=== PATIENT | male | born 1975 | race Caucasian/White ===

== ENCOUNTER 2017-09-01 23:49 | Emergency (ER) | payer MEDICAID ==
--- NOTE | 2017-09-02 00:17 | EDM.PDOC ---
ED HPI GENERAL MEDICAL PROBLEM - General Chief Complaint: General Stated Complaint: sore throat Time Seen by Provider: 09/02/17 00:10 Source of Information: Reports: Patient, Family ( ), Old Records ([facility]. No paper hospital chart available.) History Limitations: Reports: No Limitations - History of Present Illness INITIAL COMMENTS - FREE TEXT/NARRATIVE: Patient was brought to the emergency room via private automobile by his for evaluation of progressive URI symptoms including sore throat, throat fullness, nasal drainage, and yellowish productive cough with symptoms starting on about 08/27. Patient has been exposed to many individuals with URI symptoms, however no known direct exposure to strep, influenza, mononucleosis, etc. Patient did get his influenza booster this season. He has also had some intermittent fever and chills, however has not measured his temperature. No recent use of antipyretic medication other than low-dose Tylenol PM earlier this evening. Patient did start using his inhaler earlier today. He has not missed any work to this point. The patient denies any chest pain/pressure, heart flutter, dizziness, orthostasis, orthopnea, diaphoresis, paresthesias, recent decreased exercise tolerance, or any other anginal-type symptoms. No recent history of abdominal pain, heartburn, nausea, diarrhea, melena, gross hematochezia, or any food intolerance, including fatty foods, etc.. He has also been using Cepacol lozenges and Chloraseptic spray Onset: Gradual Onset Date: 08/27/17 Duration: Constant, Getting Worse Location: Reports: Head (Throat pain is about). Denies: Face, Neck, Chest, Abdomen, Back, Upper Extremity, Left, Upper Extremity, Right, Radiates to Quality: Reports: Ache, Same as Previous Episode Severity: Moderate Improves with: Reports: None Worsens with: Reports: None Context: Reports: Other (As above) Associated Symptoms: Reports: Cough, cough w sputum, Fever/Chills. 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 2130 Oral/Mouth Pain Score (Numeric/FACES): 8 - Related Data Allergies Allergy/AdvReac Type Severity Reaction Status Date / Time No Known Allergies Allergy Verified 09/01/17 23:59 Home Meds: Home Meds Acetaminophen/Diphenhydramine [Tylenol Pm Ex-Strength Caplet] 1 each PO ASDIRECTED PRN 09/02/17 [History] Albuterol Sulfate [Proair Hfa] 8.5 gm IH ASDIRECTED PRN 09/02/17 [History] Benazepril [Lotensin] 10 mg PO DAILY 09/02/17 [History] Diclofenac Sodium [Voltaren] 50 mg PO ASDIRECTED PRN 09/02/17 [History] Montelukast [Singulair] 1 tab PO DAILY 09/02/17 [History] Pantoprazole [ProTONIX] 1 cap PO DAILY 09/02/17 [History] guaiFENesin/Dextromethorphan [Mucinex DM ER 1,200-60 MG] 1 tab PO BID #20 tbmp.12hr 09/02/17 [Rx] Past Medical History HEENT History: Reports: Impaired Vision, Other (See Below). Denies: Allergic Rhinitis, Cataract, Glaucoma, Hard of Hearing, Macular Degeneration, Retinal Detachment Other HEENT History: Patient wears glasses Cardiovascular History: Reports: High Cholesterol, Hypertension. Denies: Afib, Aneurysm, Arrhythmia, Blood Clots/VTE/DVT, CAD, Heart Murmur, [place], Syncope Respiratory History: Reports: Asthma. Denies: COPD, Intubation, Previous, PE, Pneumothorax, Sleep Apnea Gastrointestinal History: Reports: GERD, Pancreatitis, Other (See Below). Denies: Celiac Disease, Cholelithiasis, Chronic Constipation, Chronic Diarrhea, Gastritis, GI Bleed, Hepatitis, Inflammatory Bowel Disease, Irritable Bowel Syndrome, Jaundice, PUD Other Gastrointestinal History: Pancreatitis of unknown etiology in about 2012 Genitourinary History: Denies: Acute Renal Failure, BPH, Chronic Renal Insuffiency, Renal Calculus, STD, Urinary Incontinence, UTI, Recurrent Musculoskeletal History: Reports: Arthritis, Back Pain, Chronic, Neck Pain, Chronic, Osteoarthritis. Denies: Fracture, Gout, RA, SLE Neurological History: Reports: None. Denies: Cerebral Aneurysms, Concussion, CVA, Headaches, Chronic, Head Trauma, Migraines, MS, Neuropathy, Peripheral, Parkinson's, Seizure, TIA Psychiatric History: Denies: Abuse, Victim of, ADD, ADHD, Addiction, Anxiety, Depression, Psych Hospitalization(s), PTSD, Suicide Attempt, Suicidal Ideation Endocrine/Metabolic History: Reports: Obesity/BMI 30+. Denies: Diabetes, Type I , Diabetes, Type II, Hypothyroidism, IDDM Hematologic History: Reports: None. Denies: Anemia, Blood Transfusion(s), Iron Deficiency Immunologic History: Reports: None. Denies: AIDS, HIV, SLE Oncologic (Cancer) History: Reports: None. Denies: Basal Cell Carcinoma, Hodgkin's Lymphoma, Leukemia, Lymphoma, Malignant Melanoma, Non-Hodgkin's Lymphoma, Squamous Cell Carcinoma Dermatologic History: Reports: Other (See Below). Denies: Eczema, Psoriasis Other Dermatologic History: Acne vulgaris previously - Infectious Disease History Infectious Disease History: Denies: C-Difficile, Chicken Pox, Measles, Meningitis, Mononucleosis, MRSA, Mumps, Pertussis (Whooping Cough), Rheumatic Fever, Rubella, Scarlet Fever, Shingles, TB, VRE - Past Surgical History Head Surgeries/Procedures: Reports: None HEENT Surgical History: Reports: Oral Surgery, Other (See Below). Denies: Adenoidectomy, Eye Surgery, Laser Surgery, LASIK, Myringotomy w Tube(s), Naso- Sinus Surgery, Tonsillectomy Other HEENT Surgeries/Procedures: [place] teeth extraction 4 at about age 14 Cardiovascular Surgical History: Reports: None. Denies: Varicose Respiratory Surgical History: Reports: None. Denies: Thoracentesis GI Surgical History: Denies: Appendectomy, Cholecystectomy, Colonoscopy, EGD, Hernia, Abdominal, Hernia, Inguinal, Hernia Repair/Other Male Surgical History: Reports: Circumcision. Denies: TURP-Transurethral Resection of Prostate, Vasectomy Other Male Surgeries/Procedures: Circumcision as an Endocrine Surgical History: Reports: None. Denies: Thyroid Biopsy Neurological Surgical History: Reports: None. Denies: C-Spine, Discectomy, Intracranial, Laminectomy, Lumbar Spine, Sacral Spine, Spinal Fusion, Vertebroplasty Musculoskeletal Surgical History: Reports: None. Denies: Arthroscopic Procedure , Carpal Tunnel, Ganglion Cyst, Joint Replacement, ORIF, Shoulder Surgery Oncologic Surgical History: Reports: None Dermatological Surgical History: Reports: None - Past Imaging History Past Imaging History: Reports: CAT Scan (CT of the cervical spine in 2017), MRI (MRI of lumbar spine in about 2007) Social & Family History - Tobacco Use Smoking Status *Q: Current Every Day Smoker Tobacco Use Within Last Twelve Months: Cigarettes Years of Tobacco use: 31 Packs/Tins Daily: 0.3 (Maximum of 1 packs per day; patient started smoking at age 10) Used Tobacco, but Quit: No Smoking Cessation Information Provided To Patient: Yes Second Hand Smoke Exposure: No Second Hand Smoke Education Provided: No - Caffeine Use Caffeine Use: Reports: Coffee (2 cups per day), Energy Drinks (4 per day), Soda (3 sodas per week). 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 Denies: Weakness, Fatigue , Diaphoresis, Decreased Appetite, Weight Loss, Weight Gain HEENT: Reports: Rhinitis, Throat Pain, Throat Swelling. Denies: Dental Pain, Ear Discharge, Ear Pain, Eye Pain, Glasses, Vertigo, Vision Change Respiratory: Reports: Cough, Sputum. Denies: Shortness of Breath, Wheezing, Pleuritic Chest Pain Cardiovascular: Reports: No Symptoms. Denies: Chest Pain, Blood Pressure Problem, Dyspnea on Exertion, Edema, Lightheadedness, Orthopnea, Palpitations, Syncope Endocrine: Reports: No Symptoms. Denies: Fatigue GI/Abdominal: Reports: Difficulty Swallowing (Secondary to pharyngitis). Denies : Abdominal Pain, Anorexia, Black Stool, Bloody Stool, Constipation, Diarrhea, Decreased Appetite, Distension, Flatus, Hematochezia, Melena, Nausea, Stool Incontinence, Vomiting : Reports: No Symptoms. Denies: Discharge, Dysuria, Flank Pain, Frequency, Hematuria, Incontinence, Pain, Urgency, Urinary Retention Musculoskeletal: Reports: No Symptoms. Denies: Neck Pain, Shoulder Pain, Arm Pain, Back Pain, Leg Pain Skin: Reports: No Symptoms. Denies: Diaphoresis, Rash, Wound Neurological: Reports: No Symptoms. Denies: Confusion, Dizziness, Headache, Numbness, Paresthesia, Seizure, Tingling Psychiatric: Reports: No Symptoms. Denies: Agitation, Anxiety, Confusion, Depression, Hallucinations, Suicidal Ideation Hematologic/Lymphatic: Reports: No Symptoms Immunologic: Reports: No Symptoms ED EXAM, GENERAL - Physical Exam Exam: See Below Exam Limited By: No Limitations General Appearance: Alert, WD/WN, No Apparent Distress Eye Exam: Bilateral Eye: EOMI, Normal Inspection (No nystagmus), PERRL Ears: Normal External Exam, Normal Canal, Hearing Grossly Normal, Normal TMs Nose: Normal Mucosa, No Blood, Nasal Drainage, Clear Rhinorrhea (Mild bilateral) . No: Nasal Tenderness, Nasal Swelling Throat/Mouth: Normal Lips, Normal Teeth, Normal Gums, Normal Oropharynx (+2 erythema in the posterior pharynx with no pinpoint white exudates or peritonsillar abscess, uvular swelling, etc.), No Airway Compromise. No: Normal Voice (Moderate hoarseness), Dysphagia, Perioral Cyanosis Head: Atraumatic, Normocephalic. No: Facial Swelling, Facial Tenderness, Sinus Tenderness Neck: Normal Inspection, Supple, Non-Tender, Full Range of Motion. No: Lymphadenopathy (L), Lymphadenopathy (R), Thyromegaly Respiratory/Chest: No Respiratory Distress, Lungs Clear, Normal Breath Sounds, No Accessory Muscle Use, Chest Non-Tender. No: Pleural Rub, Retractions Cardiovascular: Normal Peripheral Pulses, Regular Rate, Rhythm, No Edema, No Gallop, No JVD, No Murmur, No Rub. No: Gallop/S3, Gallop/S4, Friction Rub Peripheral Pulses: 2+: Radial (L), Radial (R) GI/Abdominal: Normal Bowel Sounds, Soft, Non-Tender, No Organomegaly, No Distention, No Abnormal Bruit, No Mass, Other (obese). No: Guarding (Male) Exam: Deferred Rectal (Males) Exam: Deferred Back Exam: Normal Inspection, Full Range of Motion. No: CVA Tenderness (L), CVA Tenderness (R), Muscle Spasm Extremities: Normal Range of Motion, Non-Tender, No Pedal Edema, Normal Capillary Refill. No: Pedal Edema (Trace bilateral pedal/pretibial edema), Alfonzo's Sign Neurological: Alert, Oriented, CN II-XII Intact, Normal Cognition, Normal Gait, No Motor/Sensory Deficits Psychiatric: Normal Affect, Normal Mood Skin Exam: Warm, Dry, Intact, Normal Color, No Rash. No: Diaphoretic, Wound/ Incision Lymphatic: No Adenopathy Course - Vital Signs Last Recorded V/S: Last Vital Signs Temp 37.0 C 09/01/17 23:50 Pulse 95 09/01/17 23:50 Resp 20 09/01/17 23:50 BP 145/80 H 09/01/17 23:50 Pulse Ox 95 09/01/17 23:50 Vital Signs - 24 hr 09/01/17 23:50 Temperature [ 37.0 C Temporal] Pulse, 95 Peripheral [ Pulse Oximetry] Respiratory 20 Rate Blood Pressure 145/80 H [Left Upper Arm ] O2 Sat by Pulse 95 Oximetry - Orders/Labs/Meds Orders: Active Orders 24 hr Category Date Time Status CULTURE STREP A CONFIRMATION [] Stat Lab 09/02/17 00:20 Results STREP SCRN A RAPID W CULT CONF [] Stat Lab 09/02/17 00:17 Ordered Obtain Past Medical Record [OM.PC] Routine Oth 09/02/17 00:17 Active Labs: Microbiology 09/02/17 00:20 Influenza Type A Antigen Screen - Final Nasopharyngeal Swab - Nare, Right NEGATIVE INFLUENZA A VIRUS AG Influenza Type B Antigen Screen - Final NEGATIVE INFLUENZA B VIRUS AG 09/02/17 00:20 Group A Streptococcus Rapid Screen - Final Throat NEGATIVE STREP A SCREEN Meds: Medications Discontinued Medications Generic Name Dose Route Start Last Admin Trade Name Freq PRN Reason Stop Dose Admin Methylprednisolone Acetate 80 mg 09/02/17 00:22 09/02/17 00:25 Depo-Medrol IM 09/02/17 00:23 80 mg ONETIME ONE Administration - Radiology Interpretation Free Text/Narrative:: None Departure - Departure Time of Disposition: 01:00 Disposition: Home, Self-Care 01 Condition: Good Clinical Impression: Asthma, Hypertension, Osteoarthritis, Obesity (BMI 35.0-39.9 without comorbidity), Peptic reflux disease, Respiratory infection, upper, Tobacco abuse counseling - Discharge Information Prescriptions: guaiFENesin/Dextromethorphan [Mucinex DM ER 1,200-60 MG] 1 tab PO BID #20 tbmp.12hr Instructions: Sore Throat, Uyxs-ko-Enpi Referrals: Clarita Robertson PA [Primary Care Provider] - Forms: ED Department Discharge, ED Return to Work/School Form Additional Instructions: 1. Follow up with your regular provider in 10-14 days as needed, if symptoms persist. 2. Tylenol 650 mg by mouth every 4 hours and/or OTC ibuprofen 2-3 tabs by mouth every 6 hours with food as directed./needed. 3. Listerine gargles four times per day, after meals and at bedtime, with additional Chloroseptic lozenges or spray as needed for 10 days and/or until symptoms resolve. 4. Hygiene precautions as discussed 5. Weight loss in moderation 6. Stop all tobacco use NATA as directed/per provided information and consider contacting [employer]uit [facility], etc.. 7. Work excuse- See Form - Problem List & Annotations (1) Respiratory infection, upper SNOMED Code(s): 59795328 Code(s): J06.9 - ACUTE UPPER RESPIRATORY INFECTION, UNSPECIFIED Status: Acute Priority: High Onset Date: ~08/27/17 Annotation/Comment:: IM Depo- Medrol given for throat inflammation and as asthma prophylaxis as below. No indication for antibiotic therapy at this time with likely viral pharyngitis, viral bronchitis and mild URI symptoms. Symptomatic relief as per discharge instructions. Work excuse provided Qualifiers: URI type: acute pharyngitis (2) Asthma SNOMED Code(s): 154581379 Code(s): J45.909 - UNSPECIFIED ASTHMA, UNCOMPLICATED Status: Chronic Priority: Medium Annotation/Comment:: No significant asthma exacerbation or current wheezes, etc. Note probable viral bronchitis. Compliance with inhaler encouraged. Qualifiers: Asthma severity: mild Asthma persistence: intermittent Asthma complication type: uncomplicated Qualified Code(s): J45.20 - Mild intermittent asthma, uncomplicated (3) Hypertension SNOMED Code(s): 71469695 Code(s): I10 - ESSENTIAL (PRIMARY) HYPERTENSION Status: Chronic Priority : Medium Annotation/Comment:: Stable by history. Currently treated Qualifiers: Hypertension type: essential hypertension Qualified Code(s): I10 - Essential (primary) hypertension (4) Obesity (BMI 35.0-39.9 without comorbidity) SNOMED Code(s): 229323667 Code(s): E66.9 - OBESITY, UNSPECIFIED Status: Chronic Priority: Medium Annotation/Comment:: Weight loss in moderation advised (5) Osteoarthritis SNOMED Code(s): 289900886 Code(s): M19.90 - UNSPECIFIED OSTEOARTHRITIS, UNSPECIFIED SITE Status: Chronic Priority: Medium Annotation/Comment:: Stable by history Qualifiers: Osteoarthritis location: multiple joints Osteoarthritis type: primary Qualified Code(s): M15.0 - Primary generalized (osteo)arthritis (6) Peptic reflux disease SNOMED Code(s): 64737158 Code(s): K21.9 - GASTRO-ESOPHAGEAL REFLUX DISEASE WITHOUT ESOPHAGITIS Status: Chronic Priority: Medium Annotation/Comment:: Stable under current medical therapy (7) Tobacco abuse counseling SNOMED Code(s): 129301699, 961202876 Code(s): Z71.6 - TOBACCO ABUSE COUNSELING Status: Chronic Priority: Medium Annotation/Comment:: Tobacco cessation strongly encouraged with information provided at discharge - Problem List Review Problem List Initiated/Reviewed/Updated: Yes - My Orders Last 24 Hours: My Active Orders 09/02/17 00:17 STREP SCRN A RAPID W CULT CONF [RM] Stat Obtain Past Medical Record [OM.PC] Routine 09/02/17 00:20 CULTURE STREP A CONFIRMATION [RM] Stat - Assessment/Plan Last 24 Hours: My Active Orders 09/02/17 00:17 STREP SCRN A RAPID W CULT CONF [RM] Stat Obtain Past Medical Record [OM.PC] Routine 09/02/17 00:20 CULTURE STREP A CONFIRMATION [RM] Stat Assessment:: As above Plan: As above. Extensive precautions were given to the patient and his , who are in agreement with the treatment plan. See Patient Instructions for further treatment and plan.
[2017-09-02] MEDS ORDERED: methylPREDNISolone Acetate 80 MG/ML SDV IM ONE (00:22)
== END 2017-09-02 00:49 | disposition home or self-care (01) ==
LOC: LL.ED 23:49
DX: J06.9 Acute upper respiratory infection, unspecified (principal); J45.909 Unspecified asthma, uncomplicated; I10 Essential (primary) hypertension; M19.90 Unspecified osteoarthritis, unspecified site; E66.9 Obesity, unspecified; K21.9 Gastro-esophageal reflux disease without esophagitis; F17.210 Nicotine dependence, cigarettes, uncomplicated; E78.00 Pure hypercholesterolemia, unspecified; Z71.6 Tobacco abuse counseling; Z79.899 Other long term (current) drug therapy; Z68.39 Body mass index [BMI] 39.0-39.9, adult
CPT/HCPCS: 87081; 87430; 87804; 96372; 99283; J1040

== ENCOUNTER 2017-10-29 09:30 | Emergency (ER) | payer MEDICAID, OTHER ==
--- NOTE | 2017-10-29 10:46 | EDM.PDOC ---
ED HPI GENERAL MEDICAL PROBLEM - General Chief Complaint: General Stated Complaint: Work Related Injury Time Seen by Provider: 10/29/17 10:15 Source of Information: Reports: Patient History Limitations: Reports: No Limitations - History of Present Illness INITIAL COMMENTS - FREE TEXT/NARRATIVE: Patient presents with acute low back pain that started last evening when he was working at [employer]. Patient was moving a cart full of water when he felt sudden mid low back pain. Complains of radiation down right leg when he is standing at times. Does have history of previous low back pain episodes in past but denies chronic daily pain. No bowel or bladder dysfunction. No numbness/ tingling down legs. Denies other complaints. Patient has history of obesity, asthma, high blood pressure and GERD. He did tell his employer last night that his back hurt. This morning after waking up patient noted that overall pain was worse and that is when he came to the ER. 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 Lower Back Pain Score (Numeric/FACES): 8 - Related Data Allergies Allergy/AdvReac Type Severity Reaction Status Date / Time No Known Allergies Allergy Verified 09/01/17 23:59 Home Meds: Home Meds Albuterol Sulfate [Proair Hfa] 8.5 gm IH ASDIRECTED PRN 09/02/17 [History] Benazepril [Lotensin] 10 mg PO DAILY 09/02/17 [History] Montelukast [Singulair] 1 tab PO DAILY 09/02/17 [History] Pantoprazole [ProTONIX] 1 cap PO DAILY 09/02/17 [History] Cyclobenzaprine [Flexeril] 10 mg PO TID PRN #15 tab 10/29/17 [Rx] Gabapentin [Neurontin] 300 mg PO DAILY 10/29/17 [History] Non-Formulary Medication [NF Drug] 1 applic TOP DAILY 10/29/17 [History] Prednisone [IMW: predniSONE] 40 mg PO WITHBREAKFAST #10 tab 10/29/17 [Rx] traMADol [Ultram] 50 mg PO Q6H PRN #15 tab 10/29/17 [Rx] Past Medical History HEENT History: Reports: Impaired Vision, Other (See Below). Denies: Allergic Rhinitis, Cataract, Glaucoma, Hard of Hearing, Macular Degeneration, Retinal Detachment Other HEENT History: Patient wears glasses Cardiovascular History: Reports: High Cholesterol, Hypertension. Denies: Afib, Aneurysm, Arrhythmia, Blood Clots/VTE/DVT, CAD, Heart Murmur, CT, Syncope Respiratory History: Reports: Asthma. Denies: COPD, Intubation, Previous, PE, Pneumothorax, Sleep Apnea Gastrointestinal History: Reports: GERD, Pancreatitis, Other (See Below). Denies: Celiac Disease, Cholelithiasis, Chronic Constipation, Chronic Diarrhea, Gastritis, GI Bleed, Hepatitis, Inflammatory Bowel Disease, Irritable Bowel Syndrome, Jaundice, PUD Other Gastrointestinal History: Pancreatitis of unknown etiology in about 2012 Musculoskeletal History: Reports: Arthritis, Back Pain, Chronic, Neck Pain, Chronic, Osteoarthritis. Denies: Fracture, Gout, RA, SLE Neurological History: Reports: None. Denies: Cerebral Aneurysms, Concussion, CVA, Headaches, Chronic, Head Trauma, Migraines, MS, Neuropathy, Peripheral, Parkinson's, Seizure, TIA Endocrine/Metabolic History: Reports: Obesity/BMI 30+. Denies: Diabetes, Type I , Diabetes, Type II, Hypothyroidism, IDDM Hematologic History: Reports: None. Denies: Anemia, Blood Transfusion(s), Iron Deficiency Immunologic History: Reports: None. Denies: AIDS, HIV, SLE Oncologic (Cancer) History: Reports: None. Denies: Basal Cell Carcinoma, Hodgkin's Lymphoma, Leukemia, Lymphoma, Malignant Melanoma, Non-Hodgkin's Lymphoma, Squamous Cell Carcinoma Dermatologic History: Reports: Other (See Below). Denies: Eczema, Psoriasis Other Dermatologic History: Acne vulgaris previously - Past Surgical History Head Surgeries/Procedures: Reports: None HEENT Surgical History: Reports: Oral Surgery, Other (See Below). Denies: Adenoidectomy, Eye Surgery, Laser Surgery, LASIK, Myringotomy w Tube(s), Naso- Sinus Surgery, Tonsillectomy Other HEENT Surgeries/Procedures: [place] teeth extraction 4 at about age 14 Cardiovascular Surgical History: Reports: None. Denies: Varicose Respiratory Surgical History: Reports: None. Denies: Thoracentesis Male Surgical History: Reports: Circumcision. Denies: TURP-Transurethral Resection of Prostate, Vasectomy Other Male Surgeries/Procedures: Circumcision as an infant Endocrine Surgical History: Reports: None. Denies: Thyroid Biopsy Neurological Surgical History: Reports: None. Denies: C-Spine, Discectomy, Intracranial, Laminectomy, Lumbar Spine, Sacral Spine, Spinal Fusion, Vertebroplasty Musculoskeletal Surgical History: Reports: None. Denies: Arthroscopic Procedure , Carpal Tunnel, Ganglion Cyst, Joint Replacement, ORIF, Shoulder Surgery Oncologic Surgical History: Reports: None Dermatological Surgical History: Reports: None - Past Imaging History Past Imaging History: Reports: CAT Scan (CT of the cervical spine in 2017), MRI (MRI of lumbar spine in about 2007) Social & Family History - Family History Family Medical History: Noncontributory (for complaint) - Tobacco Use Smoking Status *Q: Current Every Day Smoker Years of Tobacco use: 31 Packs/Tins Daily: 0.3 Used Tobacco, but Quit: No Second Hand Smoke Exposure: No - Caffeine Use Caffeine Use: Reports: Coffee, Energy Drinks, Soda Caffeine Use Comment: Rarely - Alcohol Use Days Per Week of Alcohol Use: 0 (No previous DWIs, problems with alcohol abuse, etc.) Number of Drinks Per Day: 1 (Straight whiskey usually once every couple months) Total Drinks Per Week: 0 - Recreational Drug Use Recreational Drug Use: No Drug Use in Last 12 Months: No - Living Situation & Occupation Living situation: Reports: (2006, 3 children), with Family ( and children) 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) ED ROS GENERAL - Review of Systems Review Of Systems: See Below Constitutional: Reports: No Symptoms HEENT: Reports: No Symptoms Respiratory: Reports: No Symptoms Cardiovascular: Reports: No Symptoms GI/Abdominal: Reports: No Symptoms. Denies: Stool Incontinence : Reports: No Symptoms. Denies: Incontinence Musculoskeletal: Reports: Back Pain, Leg Pain Skin: Reports: No Symptoms Neurological: Reports: No Symptoms. Denies: Numbness, Paresthesia, Tingling Psychiatric: Reports: No Symptoms ED EXAM, GENERAL - Physical Exam Exam: See Below Exam Limited By: No Limitations General Appearance: Alert, WD/WN, Other (uncomfortable when changing position) Eye Exam: Bilateral Eye: EOMI, PERRL Ears: Normal External Exam Head: Atraumatic, Normocephalic Respiratory/Chest: No Respiratory Distress, Lungs Clear, Normal Breath Sounds, No Accessory Muscle Use Cardiovascular: Regular Rate, Rhythm, No Murmur GI/Abdominal: Soft, Non-Tender, Other (obese) (Male) Exam: Deferred Rectal (Males) Exam: Deferred Back Exam: Paraspinal Tenderness (bilaterally, mid to lower back, left greater than right. No tenderness with palpation in gluteal area. ). No: Muscle Spasm, Vertebral Tenderness Extremities: Non-Tender, Normal Capillary Refill. No: Leg Pain Neurological: Alert, Oriented, Normal Cognition, Normal Gait, Normal Reflexes, No Motor/Sensory Deficits Psychiatric: Normal Affect, Normal Mood Skin Exam: Warm, Dry, Intact, Normal Color Course - Vital Signs Last Recorded V/S: Last Vital Signs Temp 36.2 C 10/29/17 09:37 Pulse 84 10/29/17 09:37 Resp 18 10/29/17 09:37 BP 164/95 H 10/29/17 09:37 Pulse Ox 98 10/29/17 09:37 - Orders/Labs/Meds Orders: Active Orders 24 hr Category Date Time Status Lumbar Spine Min 4V [CR] Stat Exams 10/29/17 09:38 Taken - Radiology Interpretation Free Text/Narrative:: Some narrowing of disc space L4/5, some degenerative changes noted. - Re-Assessments/Exams Free Text/Narrative Re-Assessment/Exam: 10/29/17 11:21 Acute low back pain/sciatica. Conservative treatment at this time, including rest/ice/steroids, PRN Flexeril and Tramadol. OK to return to restricted duty on Friday. To follow up with primary clinic Friday for recheck and further planning as needed, such as MRI consideration if pain has not significantly improved. Patient is in agreement with plan. Departure - Departure Time of Disposition: 10:39 Disposition: Home, Self-Care 01 Condition: Good Clinical Impression: Low back pain Qualifiers: Chronicity: acute Back pain laterality: bilateral Sciatica presence: with sciatica Sciatica laterality: sciatica of right side Qualified Code(s): M54.41 - Lumbago with sciatica, right side - Discharge Information Prescriptions: Cyclobenzaprine [Flexeril] 10 mg PO TID PRN #15 tab PRN Reason: Spasms Prednisone [IMW: predniSONE] 40 mg PO WITHBREAKFAST #10 tab traMADol [Ultram] 50 mg PO Q6H PRN #15 tab PRN Reason: Pain Instructions: Back Pain, Adult, [id number] Referrals: Clarita Robertson PA [Primary Care Provider] - Forms: ED Department Discharge Additional Instructions: Rest, gentle activity for today and tomorrow. You may return to work on restriction Friday while you finish your course of medication. Make an appointment to follow up with your primary provider Friday for re- evluation and further restrictions as needed. Additional imaging studies may be needed if the pain/problems continue. - My Orders Last 24 Hours: My Active Orders 10/29/17 09:38 Lumbar Spine Min 4V [CR] Stat - Assessment/Plan Last 24 Hours: My Active Orders 10/29/17 09:38 Lumbar Spine Min 4V [CR] Stat
== END 2017-10-29 11:00 | disposition home or self-care (01) ==
LOC: LL.ED 09:30
DX: M54.41 Lumbago with sciatica, right side (principal); I10 Essential (primary) hypertension; F17.210 Nicotine dependence, cigarettes, uncomplicated; E78.00 Pure hypercholesterolemia, unspecified; Z79.899 Other long term (current) drug therapy
CPT/HCPCS: 72110; 99283

== ENCOUNTER 2019-09-01 16:33 | Emergency (ER) | payer MEDICAID ==
[2019-09-01 17:21] LABS: CHLORIDE,CL 102 mmol/L (98-107); SODIUM,NA 140 mmol/L (136-145)
--- NOTE | 2019-09-01 17:29 | EDM.PDOC ---
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 - Related Data Allergies Allergy/AdvReac Type Severity Reaction Status Date / Time No Known Allergies Allergy Verified 09/01/19 16:37 Home Meds: Home Meds Albuterol Sulfate [Proair Hfa] 8.5 gm IH ASDIRECTED PRN 09/02/17 [History] Benazepril [Lotensin] 20 mg PO DAILY 09/02/17 [History] Montelukast [Singulair] 1 tab PO DAILY 09/02/17 [History] Pantoprazole [ProTONIX] 1 cap PO DAILY 09/02/17 [History] Gabapentin [Neurontin] 300 mg PO DAILY 10/29/17 [History] Non-Formulary Medication [NF Drug] 1 applic TOP DAILY 10/29/17 [History] Acetaminophen 3 tab PO ONETIME 09/01/19 [History] Ferrous Sulfate [Iron] 6 tab PO DAILY 09/01/19 [History] Levothyroxine 25 mcg PO DAILY 09/01/19 [History] Milk Thistle/Nac/Dandel/Turmer [Liver Complex Tablet] 1 tab PO DAILY 09/01/19 [ History] Past Medical History HEENT History: Reports: Impaired Vision, Other (See Below). Denies: Allergic Rhinitis, Cataract, Glaucoma, Hard of Hearing, Macular Degeneration, Retinal Detachment Other HEENT History: Patient wears glasses Cardiovascular History: Reports: High Cholesterol, Hypertension. Denies: Afib, Aneurysm, Arrhythmia, Blood Clots/VTE/DVT, CAD, Heart Murmur, [place], Syncope Respiratory History: Reports: Asthma. Denies: COPD, Intubation, Previous, PE, Pneumothorax, Sleep Apnea Gastrointestinal History: Reports: GERD, Pancreatitis, Other (See Below). Denies: Celiac Disease, Cholelithiasis, Chronic Constipation, Chronic Diarrhea, Gastritis, GI Bleed, Hepatitis, Inflammatory Bowel Disease, Irritable Bowel Syndrome, Jaundice, PUD Other Gastrointestinal History: Pancreatitis of unknown etiology in about 2012 Musculoskeletal History: Reports: Arthritis, Back Pain, Chronic, Neck Pain, Chronic, Osteoarthritis. Denies: Fracture, Gout, RA, SLE Neurological History: Reports: None. Denies: Cerebral Aneurysms, Concussion, CVA, Headaches, Chronic, Head Trauma, Migraines, MS, Neuropathy, Peripheral, Parkinson's, Seizure, TIA Endocrine/Metabolic History: Reports: Obesity/BMI 30+. Denies: Diabetes, Type I , Diabetes, Type II, Hypothyroidism, IDDM Hematologic History: Reports: None. Denies: Anemia, Blood Transfusion(s), Iron Deficiency Immunologic History: Reports: None. Denies: AIDS, HIV, SLE Oncologic (Cancer) History: Reports: None. Denies: Basal Cell Carcinoma, Hodgkin's Lymphoma, Leukemia, Lymphoma, Malignant Melanoma, Non-Hodgkin's Lymphoma, Squamous Cell Carcinoma Dermatologic History: Reports: Other (See Below). Denies: Eczema, Psoriasis Other Dermatologic History: Acne vulgaris previously - Past Surgical History Head Surgeries/Procedures: Reports: None HEENT Surgical History: Reports: Oral Surgery, Other (See Below). Denies: Adenoidectomy, Eye Surgery, Laser Surgery, LASIK, Myringotomy w Tube(s), Naso- Sinus Surgery, Tonsillectomy Other HEENT Surgeries/Procedures: [place] teeth extraction 4 at about age 14 Cardiovascular Surgical History: Reports: None. Denies: Varicose Respiratory Surgical History: Reports: None. Denies: Thoracentesis Male Surgical History: Reports: Circumcision. Denies: TURP-Transurethral Resection of Prostate, Vasectomy Other Male Surgeries/Procedures: Circumcision as an infant Endocrine Surgical History: Reports: None. Denies: Thyroid Biopsy Neurological Surgical History: Reports: None. Denies: C-Spine, Discectomy, Intracranial, Laminectomy, Lumbar Spine, Sacral Spine, Spinal Fusion, Vertebroplasty Musculoskeletal Surgical History: Reports: None. Denies: Arthroscopic Procedure , Carpal Tunnel, Ganglion Cyst, Joint Replacement, ORIF, Shoulder Surgery Oncologic Surgical History: Reports: None Dermatological Surgical History: Reports: None - Past Imaging History Past Imaging History: Reports: CAT Scan (CT of the cervical spine in 2017), MRI (MRI of lumbar spine in about 2007) Social & Family History - Family History Family Medical History: Noncontributory (for complaint) - Caffeine Use Caffeine Use: Reports: Coffee, Energy Drinks, Soda Caffeine Use Comment: Rarely - Living Situation & Occupation Living situation: Reports: (2007, 3 children), with Family ( and children) 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[place]) ED ROS GENERAL - Review of Systems Review Of Systems: See Below Constitutional: Reports: Diaphoresis Respiratory: Reports: No Symptoms Cardiovascular: Reports: Palpitations GI/Abdominal: Reports: Nausea Neurological: Reports: No Symptoms ED EXAM, GENERAL - Physical Exam Exam: See Below Exam Limited By: No Limitations General Appearance: Mild Distress Throat/Mouth: Normal Oropharynx Neck: Supple Respiratory/Chest: Lungs Clear Cardiovascular: Regular Rate, Rhythm GI/Abdominal: Soft, Non-Tender Back Exam: Normal Inspection Extremities: Normal Inspection Course - Vital Signs Last Recorded V/S: Last Vital Signs Temp 36.4 C 09/01/19 16:36 Pulse 113 H 09/01/19 16:36 Resp 19 09/01/19 16:36 BP 150/92 H 09/01/19 16:36 Pulse Ox 96 09/01/19 16:36 - Orders/Labs/Meds Labs: Laboratory Tests 09/01/19 09/01/19 Range/Units 17:00 17:00 WBC 6.4 (4.0-10.2) K/uL RBC 5.43 H (4.33-5.41) M/uL Hgb 17.2 H D (13.1-16.8) g/dL Hct 48.8 (39.0-49.0) % MCV 89.9 D (84.0-98.0) fL MCH 31.7 (28.2-33.3) pg MCHC 35.2 (31.7-36.0) g/dL RDW 13.2 (11.2-14.1) % Plt Count 166 D (150-350) K/uL Neut % (Auto) 31.1 L (45.0-80.0) % Lymph % (Auto) 55.3 H (10.0-50.0) % Nash % (Auto) 10.4 (2.0-14.0) % Eos % (Auto) 1.9 (0.0-5.0) % Baso % (Auto) 1.3 (0.0-2.0) % Neut # (Auto) 1.98 (1.40-7.00) K/uL Lymph # (Auto) 3.51 H (0.50-3.50) K/uL Nash # (Auto) 0.66 (0.00-1.00) K/uL Eos # (Auto) 0.12 (0.00-0.50) K/uL Baso # (Auto) 0.08 (0.00-0.20) K/uL Sodium 140 (136-145) mmol/L Potassium 3.8 (3.5-5.1) mmol/L Chloride 102 (98-107) mmol/L Carbon Dioxide 25.5 (21.0-32.0) mmol/L BUN 10 (7-18) mg/dL Creatinine 0.72 (0.51-1.17) mg/dL Est Cr Clr Drug Dosing TNP Estimated GFR (MDRD) > 60 mL/min Glucose 130 H (74-106) mg/dL Calcium 9.2 (8.5-10.1) mg/dL - Re-Assessments/Exams Free Text/Narrative Re-Assessment/Exam: 09/01/19 17:28 Pt stable in ER See lab Departure - Departure Time of Disposition: 17:30 Disposition: Home, Self-Care 01 Condition: Good Clinical Impression: Weakness - Discharge Information Instructions: Weakness, [id number], Near-Syncope, [id number] Referrals: Tonie Morrow, [employer]ST[employer]ER [Primary Care Provider] - Additional Instructions: Follow up in clinic Return to ER if worse Sepsis Event Note - Evaluation Sepsis Screening Result: No Definite Risk - Focused Exam Vital Signs: Vital Signs Temp Pulse Resp BP Pulse Ox 09/01/19 16:36 36.4 C 113 H 19 150/92 H 96 Date Exam was Performed: 09/01/19 Time Exam was Performed: 17:25
--- NOTE | 2019-09-02 15:33 | PCM.HP.2 ---
H&P History of Present Illness - General Date of Service: 09/02/19 Admit Problem/Dx: [facility] complaints of not feeling well since yesterday around noon. It started with feeling shaky, jittery, chilled, weak, body aches, dizziness and foggy headed. He also complained of associated chest pain that he described as a constant light pressure (1/10 on the pain scale), difficulty catching his breath while coughing. Cough is dry and worse with lying down. He had eaten some [place] soup just prior to feeling ill yesterday. Since then he has only had a banana. He has been feeling nauseated and only taking small drinks of fluids. It also sounds like he has symptoms of sleep apnea. He was evaluated in the ER yesterday afternoon and discharged home after labs were found to be satisfactory. Since his symptoms have worsened presents for a reevaluation. Source of Information: Patient, Significant Other History Limitations: Reports: No Limitations - History of Present Illness Onset of Symptoms: Reports: Sudden Symptom Onset Date: 09/01/19 (around noon) Duration of Symptoms: Reports: Day(s):, Getting Worse Associated Symptoms: Reports: Chest Pain, Cough, Fever/Chills, Loss of Appetite , Malaise, Nausea/Vomiting, Shortness of Breath, Weakness, Other Other HPI/Comments: weakness - Related Data Allergies/Adverse Reactions: Allergies Allergy/AdvReac Type Severity Reaction Status Date / Time No Known Allergies Allergy Verified 09/01/19 16:37 Home Medications: Home Meds Albuterol Sulfate [Proair Hfa] 8.5 gm IH ASDIRECTED PRN 09/02/17 [History] Montelukast [Singulair] 10 mg PO DAILY 09/02/17 [History] Pantoprazole [ProTONIX] 40 mg PO DAILY 09/02/17 [History] Non-Formulary Medication [NF Drug] 1 applic TOP DAILY 10/29/17 [History] Levothyroxine 25 mcg PO DAILY 09/01/19 [History] Albuterol/Ipratropium [DuoNeb 3.0-0.5 MG/3 ML] 3 ml INH QID PRN 09/02/19 [ History] Amitriptyline [Elavil] 50 mg PO BEDTIME 09/02/19 [History] Benazepril [Lotensin] 20 mg PO BID@0800,199909/02/19 [History] Budesonide/Formoterol [Symbicort 160-4.5 MCG] 2 puff INH BID@799,199909/02/19 [History] Gabapentin [Neurontin] 800 mg PO BID@0800,199909/02/19 [History] Naproxen 500 mg PO DAILY PRN 09/02/19 [History] Past Medical History HEENT History: Reports: Impaired Vision, Other (See Below). Denies: Allergic Rhinitis, Cataract, Glaucoma, Hard of Hearing, Macular Degeneration, Retinal Detachment Other HEENT History: Patient wears glasses Cardiovascular History: Reports: High Cholesterol, Hypertension. Denies: Afib, Aneurysm, Arrhythmia, Blood Clots/VTE/DVT, CAD, Heart Murmur, DE, Syncope Respiratory History: Reports: Asthma. Denies: COPD, Intubation, Previous, PE, Pneumothorax, Sleep Apnea Gastrointestinal History: Reports: GERD, Pancreatitis, Other (See Below). Denies: Celiac Disease, Cholelithiasis, Chronic Constipation, Chronic Diarrhea, Gastritis, GI Bleed, Hepatitis, Inflammatory Bowel Disease, Irritable Bowel Syndrome, Jaundice, PUD Other Gastrointestinal History: Pancreatitis of unknown etiology in about 2012 Musculoskeletal History: Reports: Arthritis, Back Pain, Chronic, Neck Pain, Chronic, Osteoarthritis. Denies: Fracture, Gout, RA, SLE Neurological History: Reports: None. Denies: Cerebral Aneurysms, Concussion, CVA, Headaches, Chronic, Head Trauma, Migraines, MS, Neuropathy, Peripheral, Parkinson's, Seizure, TIA Endocrine/Metabolic History: Reports: Obesity/BMI 30+. Denies: Diabetes, Type I , Diabetes, Type II, Hypothyroidism, IDDM Hematologic History: Reports: None. Denies: Anemia, Blood Transfusion(s), Iron Deficiency Immunologic History: Reports: None. Denies: AIDS, HIV, SLE Oncologic (Cancer) History: Reports: None. Denies: Basal Cell Carcinoma, Hodgkin's Lymphoma, Leukemia, Lymphoma, Malignant Melanoma, Non-Hodgkin's Lymphoma, Squamous Cell Carcinoma Dermatologic History: Reports: Other (See Below). Denies: Eczema, Psoriasis Other Dermatologic History: Acne vulgaris previously - Past Surgical History Head Surgeries/Procedures: Reports: None HEENT Surgical History: Reports: Oral Surgery, Other (See Below). Denies: Adenoidectomy, Eye Surgery, Laser Surgery, LASIK, Myringotomy w Tube(s), Naso- Sinus Surgery, Tonsillectomy Other HEENT Surgeries/Procedures: Tony teeth extraction 4 at about age 14 Cardiovascular Surgical History: Reports: None. Denies: Varicose Respiratory Surgical History: Reports: None. Denies: Thoracentesis Male Surgical History: Reports: Circumcision. Denies: TURP-Transurethral Resection of Prostate, Vasectomy Other Male Surgeries/Procedures: Circumcision as an Endocrine Surgical History: Reports: None. Denies: Thyroid Biopsy Neurological Surgical History: Reports: None. Denies: C-Spine, Discectomy, Intracranial, Laminectomy, Lumbar Spine, Sacral Spine, Spinal Fusion, Vertebroplasty Musculoskeletal Surgical History: Reports: None. Denies: Arthroscopic Procedure , Carpal Tunnel, Ganglion Cyst, Joint Replacement, ORIF, Shoulder Surgery Oncologic Surgical History: Reports: None Dermatological Surgical History: Reports: None - Past Imaging History Past Imaging History: Reports: CAT Scan (CT of the cervical spine in 2016), MRI (MRI of lumbar spine in about 2007) Social & Family History - Family History Family Medical History: Noncontributory (for complaint) - Tobacco Use Smoking Status *Q: Current Every Day Smoker - Caffeine Use Caffeine Use: Reports: Coffee, Energy Drinks, Soda Caffeine Use Comment: Rarely - Living Situation & Occupation Living situation: Reports: (2007, 3 children), with Family ( and children) 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[place]) H&P Review of Systems - Review of Systems: Review Of Systems: See Below General: Reports: Chills, Malaise, Weakness, Fatigue, Decreased Appetite HEENT: Reports: No Symptoms Pulmonary: Reports: Shortness of Breath, Cough, Other (dry cough) Cardiovascular: Reports: Chest Pain, Orthopnea (sleeps propped on 8 pillows) Gastrointestinal: Reports: Diarrhea, Decreased Appetite, Nausea Genitourinary: Reports: No Symptoms Musculoskeletal: Reports: Other (body aches) Skin: Reports: No Symptoms Psychiatric: Reports: Anxiety Neurological: Reports: Dizziness, Weakness Hematologic/Lymphatic: Reports: No Symptoms Immunologic: Reports: No Symptoms Exam - Exam Exam: See Below - Vital Signs Vital Signs: Last Vital Signs Temp 36.4 C 09/01/19 16:36 Pulse 113 H 09/01/19 16:36 Resp 19 09/01/19 16:36 BP 150/92 H 09/01/19 16:36 Pulse Ox 96 09/01/19 16:36 - Exam General: Alert, Oriented, Cooperative HEENT: Conjunctiva Clear, EACs Clear, EOMI, Hearing Intact, Nares Patent, Posterior Pharynx Clear, Pupils Equal, Pupils Reactive, TMs Clear, Other (lips are dry, mucous membranes dry) Neck: Supple, +2 Carotid Pulse wo Bruit Lungs: Decreased Breath Sounds Cardiovascular: Regular Rate, Regular Rhythm GI/Abdominal Exam: Soft, Tender (mid-epigastric) (Male) Exam: Deferred Rectal (Males) Exam: Deferred Extremities: Normal Inspection, No Pedal Edema Peripheral Pulses: 3+: Posterior Tibial (L), Posterior Tibial (R) Skin: Warm, Dry, Intact Neurological: Cranial Nerves Intact Psychiatric: Alert, Anxious - Patient Data Lab Results Last 24 hrs: Laboratory Results - last 24 hr 09/01/19 09/01/19 Range/Units 17:00 17:00 WBC 6.4 (4.0-10.2) K/uL RBC 5.43 H (4.33-5.41) M/uL Hgb 17.2 H D (13.1-16.8) g/dL Hct 48.8 (39.0-49.0) % MCV 89.9 D (84.0-98.0) fL MCH 31.7 (28.2-33.3) pg MCHC 35.2 (31.7-36.0) g/dL RDW 13.2 (11.2-14.1) % Plt Count 166 D (150-350) K/uL Neut % (Auto) 31.1 L (45.0-80.0) % Lymph % (Auto) 55.3 H (10.0-50.0) % [place] % (Auto) 10.4 (2.0-14.0) % Eos % (Auto) 1.9 (0.0-5.0) % Baso % (Auto) 1.3 (0.0-2.0) % Neut # (Auto) 1.98 (1.40-7.00) K/uL Lymph # (Auto) 3.51 H (0.50-3.50) K/uL [place] # (Auto) 0.66 (0.00-1.00) K/uL Eos # (Auto) 0.12 (0.00-0.50) K/uL Baso # (Auto) 0.08 (0.00-0.20) K/uL Sodium 140 (136-145) mmol/L Potassium 3.8 (3.5-5.1) mmol/L Chloride 102 (98-107) mmol/L Carbon Dioxide 25.5 (21.0-32.0) mmol/L BUN 10 (7-18) mg/dL Creatinine 0.72 (0.51-1.17) mg/dL Est Cr Clr Drug Dosing TNP Estimated GFR (MDRD) > 60 mL/min Glucose 130 H (74-106) mg/dL Calcium 9.2 (8.5-10.1) mg/dL Result Diagrams: 09/01/19 17:00 09/01/19 17:00 [place] Results Last 24 hrs: Microbiology 09/01/19 16:50 Influenza Type A Antigen Screen - Final Nasal, Unspecified NEGATIVE INFLUENZA A VIRUS AG REFERENCE RANGE: NEGATIVE Influenza Type B Antigen Screen - Final NEGATIVE INFLUENZA B VIRUS AG REFERENCE RANGE: NEGATIVE Sepsis Event Note - Evaluation Sepsis Screening Result: No Definite Risk *Q Meaningful Use (ADM) - VTE Risk Assess *Q Each Risk Factor Represents 1 Point: Age 41 - 59 years, Obesity ( BMI > 25 kg/m2 ) Total Score 1 Point Risk Factors: 2 - Problem List (1) Dehydration SNOMED Code(s): 26963711 ICD Code: E86.0 - DEHYDRATION Status: Acute Priority: High Onset Date: ~09/02/19 (2) Weakness SNOMED Code(s): 00781655 ICD Code: R53.1 - WEAKNESS Status: Acute Priority: Medium Onset Date: ~ 09/01/19 (3) Cough SNOMED Code(s): 43710187 ICD Code: R05 - COUGH Status: Acute Priority: Medium Onset Date: ~09/01 (4) Chest pain SNOMED Code(s): 74512697 ICD Code: R07.9 - CHEST PAIN, UNSPECIFIED Status: Acute Priority: High Onset Date: ~09/01/19 Qualifiers: Chest pain type: unspecified Qualified Code(s): R07.9 - Chest pain, unspecified (5) SOB (shortness of breath) SNOMED Code(s): 562594305 ICD Code: R06.02 - SHORTNESS OF BREATH Status: Acute Priority: Medium Onset Date: ~09/01/19 Problem List Initiated/Reviewed/Updated: Yes Orders Last 24hrs: Patient reviewed with Dr. Saenz and will admit him to observation. Will obtain EKG, Chest x-ray, CBC, CMP, Troponin, UA with micro to reflex a culture if positive. Activity as tolerated. Vitals every shift. Diet will be full liquid and advanced as tolerated. Continue with home medications, but may hold supplements. Will give him Zofran for nausea and Protonix 40 mg IV x 1 dose. Ativan is available if needed for anxiety. Labs and x-ray results are currently pending. Cardiac Rn will reevaluate patient in the morning. Fasting labs to be obtained in the morning to include A1C and Lipid Panel.
[2019-09-02] MEDS ORDERED: Pantoprazole 40 MG Vial IVPUSH ONE (15:49)
[2019-09-02] MEDS ORDERED: Ondansetron 4 MG/2 ML SDV IVPUSH PRN (15:49)
[2019-09-02] MEDS ORDERED: LORazepam 1 MG Tab PO PRN (15:50)
[2019-09-02] MEDS ORDERED: Sodium Chloride 0.9% 1,000 ML IV SCH (16:00)
== END 2019-09-01 17:46 | disposition home or self-care (01) ==
LOC: LL.ED 16:33 → LL.MS 09-02 14:56 → UNDOADMOB 09-02 14:56
DX: R53.1 Weakness (principal); E10.9 Type 1 diabetes mellitus without complications; I10 Essential (primary) hypertension; I25.2 Old myocardial infarction; F17.210 Nicotine dependence, cigarettes, uncomplicated; Z79.899 Other long term (current) drug therapy
CPT/HCPCS: 36415; 80048; 85025; 87804; 99284

== ENCOUNTER 2019-09-02 15:00 | Observation (INO) | payer MEDICAID ==
[2019-09-02] MEDS ORDERED: Pantoprazole 40 MG Vial IVPUSH ONE (16:24)
[2019-09-02] MEDS ORDERED: Ondansetron 4 MG/2 ML SDV IVPUSH PRN (16:24)
[2019-09-02 16:35] LABS: CHLORIDE,CL 104 mmol/L (98-107); SODIUM,NA 141 mmol/L (136-145)
[2019-09-02] MEDS ORDERED: Naproxen 250 MG Tab PO PRN (16:43)
[2019-09-02] MEDS ORDERED: Albuterol 8 GM Inhaler INH PRN (16:43)
[2019-09-02] MEDS ORDERED: Albuterol/Ipratropium 3.0-0.5 MG/3 ML Neb Soln INH PRN (16:43)
[2019-09-02] MEDS: Sodium Chloride 0.9% 1,000 ML IV SCH ×2 (16:51→23:06)
[2019-09-02] MEDS ORDERED: Acetaminophen 500 MG Tab PO ONE (17:29)
[2019-09-02] MEDS ORDERED: diphenhydrAMINE 25 MG Cap PO ONE (17:30)
[2019-09-02] MEDS ORDERED: diphenhydrAMINE 25 MG Cap ONE (17:53)
[2019-09-02] MEDS: Amitriptyline 25 MG Tab PO SCH (18:01)
[2019-09-02] MEDS ORDERED: Amitriptyline 25 MG Tab PO SCH (20:00)
[2019-09-02] MEDS ORDERED: FORMOTEROL INH SCH (20:00)
[2019-09-02] MEDS ORDERED: BUDESONIDE INH SCH (20:00)
[2019-09-02] MEDS: Gabapentin 400 MG Cap PO SCH (20:24)
[2019-09-02] MEDS: Pantoprazole 40 MG Tab.CR PO SCH (20:25)
[2019-09-02] MEDS: LORazepam 1 MG Tab PO PRN (20:25)
[2019-09-02] MEDS: Lisinopril 20 MG Tab PO SCH (20:25)
[2019-09-02] MEDS ORDERED: FLU Vacc QS2019-20(6MOS+)/PF 60 MCG/0.5 ML SYRINGE IM ONE (20:45)
[2019-09-03] MEDS: Sodium Chloride 0.9% 1,000 ML IV SCH (05:27)
[2019-09-03] MEDS: Levothyroxine 25 MCG Tab PO SCH (07:46)
[2019-09-03] MEDS: Gabapentin 400 MG Cap PO SCH ×2 (07:46→20:22)
[2019-09-03] MEDS: Montelukast 10 MG Tab PO SCH (07:47)
[2019-09-03] MEDS: LORazepam 1 MG Tab PO PRN (07:47)
[2019-09-03] MEDS: Lisinopril 20 MG Tab PO SCH ×2 (07:47→20:23)
[2019-09-03 07:57] LABS: HEMOGLOBIN A1C 6.2 % (4.3-5.7)
[2019-09-03 08:02] LABS: CHLORIDE,CL 106 mmol/L (98-107); SODIUM,NA 141 mmol/L (136-145)
[2019-09-03] MEDS ORDERED: Furosemide 20 MG/2 ML VIAL IVPUSH ONE (08:08)
[2019-09-03] MEDS ORDERED: Benzonatate 100 MG Cap PO PRN (08:09)
[2019-09-03] MEDS: Sodium Chloride 0.9% 10 ML Syringe FLUSH PRN ×2 (08:44→11:28)
[2019-09-03] MEDS: cefTRIAXone 1 GM in Sodium Chloride 0.9% 100 ML IV SCH (11:28)
[2019-09-03] MEDS: Amitriptyline 25 MG Tab PO SCH (17:16)
[2019-09-03] MEDS ORDERED: NIFEdipine 10 MG Cap PO ONE (17:35)
--- NOTE | 2019-09-03 17:45 | PCM.PN ---
- General Info Date of Service: 09/03/19 Functional Status: Reports: Tolerating Diet, Urinating - Review of Systems General: Reports: Chills (improved) HEENT: Reports: No Symptoms Pulmonary: Reports: Cough (improved) Cardiovascular: Reports: No Symptoms Gastrointestinal: Reports: Nausea (improved) Genitourinary: Reports: Other (urine dark in color) Musculoskeletal: Reports: No Symptoms Skin: Reports: No Symptoms Neurological: Reports: Weakness (improving) Psychiatric: Reports: No Symptoms - Patient Data Vitals - Most Recent: Last Vital Signs Temp 97.9 F 09/03/19 07:50 Pulse 83 09/03/19 07:50 Resp 16 09/03/19 07:50 BP 155/106 H 09/03/19 16:44 Pulse Ox 93 L 09/03/19 07:50 Weight - Most Recent: 278 lb 4.8 oz I&O - Last 24 Hours: Intake & Output 09/03/19 09/03/19 09/03/19 06:59 14:59 22:59 Intake Total 2159 2520 Output Total 0 650 325 Balance 2159 1870 -325 Lab Results Last 24 Hours: Laboratory Results - last 24 hr 09/03/19 09/03/19 09/03/19 Range/Units 07:20 07:20 07:20 WBC 6.2 (4.0-10.2) K/uL RBC 4.99 (4.33-5.41) M/uL Hgb 15.9 D (13.1-16.8) g/dL Hct 46.3 (39.0-49.0) % MCV 92.8 (84.0-98.0) fL MCH 31.9 (28.2-33.3) pg MCHC 34.3 (31.7-36.0) g/dL RDW 13.4 (11.2-14.1) % Plt Count 150 (150-350) K/uL Neut % (Auto) 34.3 L (45.0-80.0) % Lymph % (Auto) 49.8 (10.0-50.0) % [place] % (Auto) 7.9 (2.0-14.0) % Eos % (Auto) 7.4 H (0.0-5.0) % Baso % (Auto) 0.6 (0.0-2.0) % Neut # (Auto) 2.14 (1.40-7.00) K/uL Lymph # (Auto) 3.10 (0.50-3.50) K/uL [place] # (Auto) 0.49 (0.00-1.00) K/uL Eos # (Auto) 0.46 (0.00-0.50) K/uL Baso # (Auto) 0.04 (0.00-0.20) K/uL Sodium 141 (136-145) mmol/L Potassium 3.7 (3.5-5.1) mmol/L Chloride 106 (98-107) mmol/L Carbon Dioxide 28.8 (21.0-32.0) mmol/L BUN 12 (7-18) mg/dL Creatinine 0.74 (0.51-1.17) mg/dL Est Cr Clr Drug Dosing 121.96 mL/min Estimated GFR (MDRD) > 60 mL/min Glucose 110 H (74-106) mg/dL Hemoglobin A1c 6.2 H (4.3-5.7) % Calcium 8.2 L D (8.5-10.1) mg/dL Total Bilirubin 1.5 H (0.2-1.0) mg/dL AST 136 H (15-37) U/L ALT 104 H (12-78) U/L Alkaline Phosphatase 79 (46-116) IU/L NT-Pro-B Natriuret Pep (0-125) pg/mL Total Protein 7.4 (6.4-8.2) g/dL Albumin 3.3 L (3.4-5.0) g/dL Triglycerides 243 H (30-150) mg/dL Cholesterol 216 H (100-200) mg/dL LDL Cholesterol, Calc 116 H (0-100) mg/dL HDL Cholesterol 51 (40-60) mg/dL Amylase 46 (25-115) U/L Lipase 273 (73-393) U/L 09/03/19 Range/Units 07:20 WBC (4.0-10.2) K/uL RBC (4.33-5.41) M/uL Hgb (13.1-16.8) g/dL Hct (39.0-49.0) % MCV (84.0-98.0) fL MCH (28.2-33.3) pg MCHC (31.7-36.0) g/dL RDW (11.2-14.1) % Plt Count (150-350) K/uL Neut % (Auto) (45.0-80.0) % Lymph % (Auto) (10.0-50.0) % [place] % (Auto) (2.0-14.0) % Eos % (Auto) (0.0-5.0) % Baso % (Auto) (0.0-2.0) % Neut # (Auto) (1.40-7.00) K/uL Lymph # (Auto) (0.50-3.50) K/uL [place] # (Auto) (0.00-1.00) K/uL Eos # (Auto) (0.00-0.50) K/uL Baso # (Auto) (0.00-0.20) K/uL Sodium (136-145) mmol/L Potassium (3.5-5.1) mmol/L Chloride (98-107) mmol/L Carbon Dioxide (21.0-32.0) mmol/L BUN (7-18) mg/dL Creatinine (0.51-1.17) mg/dL Est Cr Clr Drug Dosing mL/min Estimated GFR (MDRD) mL/min Glucose (74-106) mg/dL Hemoglobin A1c (4.3-5.7) % Calcium (8.5-10.1) mg/dL Total Bilirubin (0.2-1.0) mg/dL AST (15-37) U/L ALT (12-78) U/L Alkaline Phosphatase (46-116) IU/L NT-Pro-B Natriuret Pep 28 (0-125) pg/mL Total Protein (6.4-8.2) g/dL Albumin (3.4-5.0) g/dL Triglycerides (30-150) mg/dL Cholesterol (100-200) mg/dL LDL Cholesterol, Calc (0-100) mg/dL HDL Cholesterol (40-60) mg/dL Amylase (25-115) U/L Lipase (73-393) U/L Med Orders - Current: Current Medications Albuterol (Ventolin Hfa) 8.5 gm INH ASDIRECTED PRN PRN Reason: Dyspnea Albuterol/Ipratropium (Duoneb 3.0-0.5 Mg/3 Ml) 3 ml INH QID PRN PRN Reason: Shortness of Breath Amitriptyline HCl (Elavil) 50 mg PO DAILY@1700 [facility] Last Admin: 09/03/19 17:16 Dose: 50 mg Benzonatate (Tessalon Perles) 200 mg PO TID PRN PRN Reason: Cough Last Admin: 09/03/19 08:42 Dose: 200 mg Gabapentin (Neurontin) 800 mg PO BID@ [facility] Last Admin: 09/03/19 07:46 Dose: 800 mg Ceftriaxone Sodium 1 gm/ (Sodium Chloride) 100 mls @ 200 mls/hr IV Q24H [facility] Last Admin: 09/03/19 11:28 Dose: 200 mls/hr Influenza Virus Vaccine (Fluzone Quad [id number] Syringe) 60 mcg IM .ONCE ONE Stop: 09/03/19 18:01 Levothyroxine Sodium (Levothyroxine) 25 mcg PO DAILY [facility] Last Admin: 09/03/19 07:46 Dose: 25 mcg Lisinopril (Prinivil) 20 mg PO BID@799,1999 [facility] Last Admin: 09/03/19 07:47 Dose: 20 mg Lorazepam (Ativan) 1 mg PO TID PRN PRN Reason: Anxiety Last Admin: 09/03/19 07:47 Dose: 1 mg Montelukast Sodium (Singulair) 10 mg PO DAILY [facility] Last Admin: 09/03/19 07:47 Dose: 10 mg Naproxen (Naprosyn) 500 mg PO BID PRN PRN Reason: Pain Ondansetron HCl (Zofran) 4 mg IVPUSH Q6H PRN PRN Reason: Nausea/Vomiting Pantoprazole Sodium (Protonix) 40 mg PO BEDTIME [facility] Last Admin: 09/02/19 20:25 Dose: 40 mg Sodium Chloride (Saline Flush) 10 ml FLUSH ASDIRECTED PRN PRN Reason: Keep Vein Open Last Admin: 09/03/19 11:28 Dose: 10 ml Discontinued Medications Acetaminophen (Tylenol Extra Strength) 500 mg PO ONETIME ONE Stop: 09/02/19 17:30 Last Admin: 09/02/19 18:01 Dose: 500 mg Amitriptyline HCl (Elavil) 50 mg PO BEDTIME NANI Diphenhydramine HCl (Benadryl) 25 mg PO ONETIME ONE Stop: 09/02/19 17:31 Last Admin: 09/02/19 18:00 Dose: 25 mg Diphenhydramine HCl (Benadryl) Confirm Administered Dose 25 mg .ROUTE .STK-MED ONE Stop: 09/02/19 17:54 Last Admin: 09/02/19 18:01 Dose: Not Given Furosemide (Lasix) 10 mg IVPUSH NOW ONE Stop: 09/03/19 08:09 Last Admin: 09/03/19 08:41 Dose: 10 mg Sodium Chloride (Normal Saline) 1,000 mls @ 150 mls/hr IV ASDIRECTED NANI Last Admin: 09/03/19 05:27 Dose: 150 mls/hr Influenza Virus Vaccine (Pharmacy To Dose - Influenza Vaccine) 1 each IM ONETIME ONE Stop: 09/02/19 20:30 Influenza Virus Vaccine (Fluzone Quad [id number] Syringe) 60 mcg IM .ONCE ONE Stop: 09/02/19 20:46 Nifedipine (Procardia) 10 mg PO ONETIME ONE Stop: 09/03/19 17:36 Budesonide/ (Formoterol 2 Puff)) 2 puff INH BID@0800,2000 [facility] Pantoprazole Sodium (Protonix Iv) 40 mg IVPUSH ONETIME ONE Stop: 09/02/19 16:25 Last Admin: 09/02/19 16:51 Dose: 40 mg - Exam General: Alert, Cooperative, No Acute Distress HEENT: Mucous Membr. Moist/[place] Neck: Trachea Midline, No JVD Lungs: Normal Respiratory Effort, Decreased Breath Sounds, Crackles (bibasilar) Cardiovascular: Regular Rate, Regular Rhythm GI/Abdominal Exam: Soft, Non-Tender, No Distention (Male) Exam: Deferred Back Exam: Normal Inspection Extremities: Normal Inspection, Non-Tender, No Pedal Edema Skin: Warm, Dry, Intact Neurological: No New Focal Deficit Psy/Mental Status: Alert, Normal Affect, Normal Mood Sepsis Event Note - Evaluation Sepsis Screening Result: No Definite Risk - Focused Exam Vital Signs: Vital Signs Temp Pulse Resp BP BP BP Pulse Ox 09/03/19 16:44 155/106 H 09/03/19 09:47 142/97 H 09/03/19 07:50 97.9 F 83 16 152/106 H 93 L 09/03/19 07:47 159/104 H Date Exam was Performed: 09/03/19 Time Exam was Performed: 17:40 - Problem List & Annotations (1) UTI (urinary tract infection) SNOMED Code(s): 60614765 Code(s): N39.0 - URINARY TRACT INFECTION, SITE NOT SPECIFIED Status: Acute Priority: High Current Visit: Yes Qualifiers: Urinary tract infection type: acute cystitis Hematuria presence: without hematuria Qualified Code(s): N30.00 - Acute cystitis without hematuria (2) Asthma SNOMED Code(s): 205299594 Code(s): J45.909 - UNSPECIFIED ASTHMA, UNCOMPLICATED Status: Chronic Priority: Medium Current Visit: No Qualifiers: Asthma severity: moderate Asthma persistence: persistent Asthma complication type: with acute exacerbation Qualified Code(s): J45.41 - Moderate persistent asthma with (acute) exacerbation (3) Respiratory infection, upper SNOMED Code(s): 94102703 Code(s): J06.9 - ACUTE UPPER RESPIRATORY INFECTION, UNSPECIFIED Status: Acute Priority: High Current Visit: No Onset Date: ~08/27/17 Qualifiers: URI type: unspecified viral URI Qualified Code(s): J06.9 - Acute upper respiratory infection, unspecified (4) Cough SNOMED Code(s): 82050284 Code(s): R05 - COUGH Status: Acute Priority: Medium Current Visit: No Onset Date: ~09/01/19 (5) SOB (shortness of breath) SNOMED Code(s): 900148950 Code(s): R06.02 - SHORTNESS OF BREATH Status: Acute Priority: Medium Current Visit: No Onset Date: ~09/01/19 (6) Dehydration SNOMED Code(s): 28206684 Code(s): E86.0 - DEHYDRATION Status: Acute Priority: High Current Visit : No Onset Date: ~09/02/19 (7) Weakness SNOMED Code(s): 81627072 Code(s): R53.1 - WEAKNESS Status: Acute Priority: Medium Current Visit : No Onset Date: ~09/01/19 (8) Hypertension SNOMED Code(s): 36238028 Code(s): I10 - ESSENTIAL (PRIMARY) HYPERTENSION Status: Chronic Priority : Medium Current Visit: No Qualifiers: Hypertension type: essential hypertension Qualified Code(s): I10 - Essential (primary) hypertension (9) Elevated LFTs SNOMED Code(s): 363303101, 041785207 Code(s): R94.5 - ABNORMAL RESULTS OF LIVER FUNCTION STUDIES Status: Acute Priority: High Current Visit: Yes (10) COPD (chronic obstructive pulmonary disease) SNOMED Code(s): 74693472 Code(s): J44.9 - CHRONIC OBSTRUCTIVE PULMONARY DISEASE, UNSPECIFIED Status : Acute Current Visit: Yes Qualifiers: COPD type: chronic bronchitis Chronic bronchitis type: mixed simple and mucopurulent Qualified Code(s): J41.8 - Mixed simple and mucopurulent chronic bronchitis - Problem List Review Problem List Initiated/Reviewed/Updated: Yes - My Orders Last 24 Hours: My Active Orders 09/04/19 05:11 BASIC METABOLIC PANEL,BMP [CHEM] Routine CBC WITH AUTO DIFF [HEME] Routine HEPATIC FUNCTION PANEL,HFP [CHEM] Routine HEPATITIS PANEL (4) [REF] Routine - Plan Plan:: 09/03/2019 Tico Suarez MD He is feeling a lot better although blood pressure markedly elevated at this time. He thinks his blood pressure is elevated because he thinks he threw up his blood pressure medications over the last couple of days. He says his shortness of breath is from his COPD and his asthma. I told him his LFTs were elevated. He said he knows the reason. He said he normally drinks ~3 beers a day but he drank 9-15 high tall drinks New's Year [place] because he is going to quit alcohol all together so he had a last hurray.
[2019-09-03] MEDS ORDERED: FLU Vacc QS2019-20(6MOS+)/PF 60 MCG/0.5 ML SYRINGE IM ONE (18:00)
[2019-09-03] MEDS: Arformoterol 15 MCG/2 ML Neb Soln NEB SCH (20:22)
[2019-09-03] MEDS: Budesonide 0.5 MG/2 ML Neb Susp NEB SCH (20:22)
[2019-09-03] MEDS: Pantoprazole 40 MG Tab.CR PO SCH (20:24)
[2019-09-04 07:25] LABS: CHLORIDE,CL 104 mmol/L (98-107); SODIUM,NA 141 mmol/L (136-145)
[2019-09-04] MEDS: Montelukast 10 MG Tab PO SCH (07:40)
[2019-09-04] MEDS: Levothyroxine 25 MCG Tab PO SCH (07:40)
[2019-09-04] MEDS: Gabapentin 400 MG Cap PO SCH (07:40)
[2019-09-04] MEDS: Budesonide 0.5 MG/2 ML Neb Susp NEB SCH (07:41)
[2019-09-04] MEDS: Arformoterol 15 MCG/2 ML Neb Soln NEB SCH (07:41)
[2019-09-04] MEDS: Lisinopril 20 MG Tab PO SCH (07:41)
[2019-09-04] MEDS ORDERED: amLODIPine 5 MG Tab PO SCH (10:00)
--- NOTE | 2019-09-04 10:03 | PCM.DCSUM1 ---
Discharge Summary - Hospital Course HPI Initial Comments: See admission H&P Brief History: See admission H&P Diagnosis: Stroke: No Modified Junior Scale: No Symptoms at All Modified Junior Scale Score: 0 - Discharge Data Discharge Date: 09/04/19 Discharge Disposition: Home, Self-Care 01 Condition: Good - Referral to Home Health Primary Care Physician: PCP Unknown - Discharge Diagnosis/Problem(s) (1) Elevated LFTs SNOMED Code(s): 176805234, 403499498 ICD Code: R94.5 - ABNORMAL RESULTS OF LIVER FUNCTION STUDIES Status: Acute Priority: High Current Visit: Yes Onset Date: 09/02/19 Problem Details : Apparent previous history of LFTs elevation possibly secondary to his alcohol abuse, which patient denies at this time, including no previous history of DWIs , etc. Significant progression of his LFTs elevation likely secondary to his additional IV Rocephin therapy. Note the patient did have significant alcohol intake on 08/31, however he has made a New Year's resolution to stop both his alcohol and tobacco use. Various therapeutic options were discussed with the patient, who is requesting to go home secondary to his son's birthday green party later today. Patient also has previous history with hyperlipidemia including previous therapy, however not currently. Fatty liver may be a contributive factor. Recommend regular provider order abdominal ultrasound time of follow-up visit as per discharge instructions. Hygiene precautions discussed since acute hepatitis has not been ruled out to this point. (2) UTI (urinary tract infection) SNOMED Code(s): 78247305 ICD Code: N39.0 - URINARY TRACT INFECTION, SITE NOT SPECIFIED Status: Acute Priority: High Current Visit: Yes Onset Date: ~09/02/19 Problem Details: Patient was placed in observation status for treatment of his UTI with IV Rocephin initiated as above. Secondary to progressive LFTs elevation this will be discontinued, however. Macrobid emergency room prescription provided with more extended antibiotic therapy to be prescribed by his regular provider at time of follow-up. Macrobid should be continued with caution secondary to low possibility of progression of his LFTs elevation with this medication. Urine culture is negative to this point. Qualifiers: Urinary tract infection type: acute cystitis Hematuria presence: without hematuria Qualified Code(s): N30.00 - Acute cystitis without hematuria (3) COPD (chronic obstructive pulmonary disease) SNOMED Code(s): 69301399 ICD Code: J44.9 - CHRONIC OBSTRUCTIVE PULMONARY DISEASE, UNSPECIFIED Status : Chronic Priority: Medium Current Visit: Yes Problem Details: Patient was given nebulizer treatment during this hospitalization with no significant exacerbation of his COPD/asthma or evidence of current bronchitic type symptoms. He does have inhaler and a nebulizer at home. Consider PFT by his regular provider depending on his clinical course. at follow-up. Qualifiers: COPD type: chronic bronchitis Chronic bronchitis type: mixed simple and mucopurulent Qualified Code(s): J41.8 - Mixed simple and mucopurulent chronic bronchitis (4) Dehydration SNOMED Code(s): 05724275 ICD Code: E86.0 - DEHYDRATION Status: Chronic Priority: High Current Visit: Yes Onset Date: ~09/02/19 Problem Details: Resolved with IV fluids. Note previous borderline polycythemia on admission, which has also resolved. (5) Hypertension SNOMED Code(s): 72949755 ICD Code: I10 - ESSENTIAL (PRIMARY) HYPERTENSION Status: Chronic Priority : Medium Current Visit: Yes Problem Details: Blood pressures under poor control during this hospitalization. Norvasc therapy was initiated in the emergency room with additional emergency room prescription provided secondary to weekend rounding. Further medication adjustment and refills by his regular provider. Qualifiers: Hypertension type: essential hypertension Qualified Code(s): I10 - Essential (primary) hypertension (6) Osteoarthritis SNOMED Code(s): 262857026 ICD Code: M19.90 - UNSPECIFIED OSTEOARTHRITIS, UNSPECIFIED SITE Status: Chronic Priority: Medium Current Visit: Yes Problem Details: Stable by history Qualifiers: Osteoarthritis location: multiple joints Osteoarthritis type: primary Qualified Code(s): M15.0 - Primary generalized (osteo)arthritis (7) Peptic reflux disease SNOMED Code(s): 327597725 ICD Code: K21.9 - GASTRO-ESOPHAGEAL REFLUX DISEASE WITHOUT ESOPHAGITIS Status: Chronic Priority: Medium Current Visit: Yes Problem Details: Stable under current medical therapy (8) Tobacco abuse counseling SNOMED Code(s): 262660622, 517833162, 666085009 ICD Code: Z71.6 - TOBACCO ABUSE COUNSELING Status: Chronic Priority: Medium Current Visit: Yes Problem Details: The patient was congratulated about wanting to stop smoking. Tobacco cessation strongly encouraged with tobacco cessation information provided at discharge. (9) Obesity (BMI 35.0-39.9 without comorbidity) SNOMED Code(s): 835547611, 366352727 ICD Code: E66.9 - OBESITY, UNSPECIFIED Status: Chronic Priority: Medium Current Visit: Yes Problem Details: Weight loss in moderation advised especially in light of hyperlipidemia as below with consideration of statin therapy once his LFTs elevation has been clarified/resolved. (10) Hypothyroidism (acquired) SNOMED Code(s): 877819297 ICD Code: E03.9 - HYPOTHYROIDISM, UNSPECIFIED Status: Chronic Priority: Medium Current Visit: Yes Problem Details: Currently under therapy. Continue to observe closely by regular provider. (11) Hyperlipidemia SNOMED Code(s): 82142863 ICD Code: E78.5 - HYPERLIPIDEMIA, UNSPECIFIED Status: Chronic Priority: Medium Current Visit: Yes Problem Details: Lipid panel elevated during this hospitalization. Dietary recommendations provided at discharge. No medical therapy for now secondary to his current LFTs elevation. Qualifiers: Hyperlipidemia type: mixed hyperlipidemia Qualified Code(s): E78.2 - Mixed hyperlipidemia (12) Hypoalbuminemia SNOMED Code(s): 014173275 ICD Code: E88.09 - [facility] DISORDERS OF PLASMA-PROTEIN METABOLISM, NEC Status: Acute Priority: Medium Current Visit: Yes Onset Date: ~09/03/19 Problem Details: Resolved at time of discharge. (13) Hyperglycemia SNOMED Code(s): 20708196 ICD Code: R73.9 - HYPERGLYCEMIA, UNSPECIFIED Status: Acute Current Visit : Yes Onset Date: ~09/02/19 Problem Details: Improved at time of discharge. Glycosylated hemoglobin at follow-up as per discharge instructions. - Patient Summary/Data Operative Procedure(s) Performed: None Complications: Progressive LFTs elevation as above Consults: None Labs Pending at D/C: 1. Blood culture 2 results 2. Acute hepatitis panel results Recommended Follow-up Testing/Procedures: As per discharge instructions Planned Operative Procedure(s) after DC: None Hospital Course: Patient was placed in observation for treatment of his UTI with mild LFTs elevation on admission. Note LFTs progression likely secondary to IV Rocephin therapy during this hospitalization with otherwise treatment as above. Patient is requesting to go home as above. Was followed by regular provider as per discharge instructions and as above. - Patient Instructions Diet: Heart Healthy Diet Diet, Other: Low carbohydrate Activity: As Tolerated Driving: May Drive Today Showering/Bathing: May Shower Notify Provider of: Fever, Increased Pain, Nausea and/or Vomiting Other/Special Instructions: 1. Followup with your regular provider in 2 days as directed for reevaluation and recommended CBC, comprehensive metabolic panel, glycosylated hemoglobin, INR, PTT, and outpatient abdominal ultrasound for LFTs elevation. Bring these discharge instructions with you to that visit. 2. Further prescriptions for new medications including amlodipine and nitrofurantoin at that time by your regular provider depending on above testing results, etc. 3. Strict hygiene precautions as discussed and secondary your liver enzyme elevations today's improve and acute hepatitis has been ruled out. 4. Strict avoidance of all alcohol, Tylenol, Aleve, ibuprofen, and any other NSAIDs until released by your regular provider after her LFTs have improved. 5. Stop all tobacco use NATA as directed/per provided information and consider contacting [employer]uit [employer], etc.. 6. Congraduations about trying to stop smoking and discontinuation of all alcohol. 7. Rocephin should be added to your intolerance list, i.e., LFTs elevation. 8. Immediately after this visit verify that your cellular telephone's voicemail has been activated and is empty. Also verify that your home telephone's answering machine is operating properly and has space to receive messages. Note that it is sometimes necessary for us to be able to contact you at a later date to discuss your medical care. 9. Please remember that we are ALWAYS here for you and want to answer any questions you may have. Feel free to call the hospital any time and we call you back NATA. - Discharge Plan *PRESCRIPTION DRUG MONITORING PROGRAM REVIEWED*: Not Applicable *COPY OF PRESCRIPTION DRUG MONITORING REPORT IN PATIENT CLARE: Not Applicable Prescriptions/Med Rec: amLODIPine [Norvasc] 5 mg PO DAILY #10 tablet Nitrofurantoin Monohyd/M-Cryst [Macrobid 100 mg Capsule] 100 mg PO BID #6 capsule Home Medications: Home Meds Albuterol Sulfate [Proair Hfa] 8.5 gm IH ASDIRECTED PRN 09/02/17 [History] Montelukast [Singulair] 10 mg PO DAILY 09/02/17 [History] Pantoprazole [ProTONIX] 40 mg PO DAILY 09/02/17 [History] Non-Formulary Medication [NF Drug] 1 applic TOP DAILY 10/29/17 [History] Levothyroxine 25 mcg PO DAILY 09/01/19 [History] Albuterol/Ipratropium [DuoNeb 3.0-0.5 MG/3 ML] 3 ml INH QID PRN 09/02/19 [ History] Amitriptyline [Elavil] 50 mg PO BEDTIME 09/02/19 [History] Benazepril [Lotensin] 20 mg PO BID@08,199909/02/19 [History] Budesonide/Formoterol [Symbicort 160-4.5 MCG] 2 puff INH BID@08,199909/02/19 [History] Gabapentin [Neurontin] 800 mg PO BID@799,199909/02/19 [History] Nitrofurantoin Monohyd/M-Cryst [Macrobid 100 mg Capsule] 100 mg PO BID #6 capsule 09/04/19 [Rx] amLODIPine [Norvasc] 5 mg PO DAILY #10 tablet 09/04/19 [Rx] Oxygen Therapy Mode: Room Air Patient Handouts: Diet and Hepatitis, Alcoholic Liver Disease, [id number], Fat and Cholesterol Restricted Eating Plan, [id number], Urinary Tract Infection, Adult, [id number], Health Risks of Smoking, Steps to Quit Smoking, [id number], Amlodipine tablets, Nitrofurantoin tablets or capsules - Discharge Summary/Plan Comment DC Time >30 min.: Yes (Coordination of care ) Discharge Summary/Plan Comment: As above. Extensive precautions were given to the patient, who is in agreement with the treatment plan. See Patient Instructions for further treatment and plan. NOTE: Admission H&P not available/not finalized at time of rounds today. - General Info Date of Service: 09/04/19 Admission Dx/Problem (Free Text: 1. UTI 2. LFTs elevation 3. COPD 4. Dehydration Functional Status: Reports: Pain Controlled, Tolerating Diet, Ambulating, Urinating, New Symptoms. Denies: Incentive Spirometry Numeric/FACES Score: 0 - Review of Systems General: Reports: No Symptoms. Denies: Fever, Weakness, Fatigue, Malaise, Chills, Night Sweats, Appetite (Good) HEENT: Reports: Glasses. Denies: Dysphasia, Ear Pain, Eye Pain, Headaches, Post Nasal Drip, Sinus Congestion, Sore Throat, Rhinitis, Visual Changes Pulmonary: Reports: No Symptoms. Denies: Shortness of Breath, Pleuritic Chest Pain, Cough, Sputum, Hemoptysis, Wheezing Cardiovascular: Reports: No Symptoms. Denies: Chest Pain, Palpitations, Dyspnea on Exertion, Orthopnea, PND, Edema, Lightheadedness Gastrointestinal: Reports: No Symptoms, Other (Normal bowel movement earlier today). Denies: Abdominal Pain, Constipation, Diarrhea, Difficulty Swallowing, Flatus, Melena, Nausea, Vomiting Genitourinary: Reports: No Symptoms. Denies: Dysuria, Frequency, Burning, Pain , Urgency, Incontinence, Hematuria, Retention, Flank Pain Musculoskeletal: Reports: No Symptoms. Denies: Neck Pain, Shoulder Pain, Arm Pain, Back Pain, Leg Pain Skin: Reports: No Symptoms. Denies: Cyanosis, Jaundice, Diaphoresis, Bruising, Pruritis, Rash Neurological: Reports: No Symptoms. Denies: Confusion, Dizziness, Numbness, Paresthesia, Tingling, Weakness Psychiatric: Reports: No Symptoms. Denies: Confusion, Depression, Anxiety, Agitation, Cravings, Hallucinations - Patient Data Vitals - Most Recent: Last Vital Signs Temp 36.6 C 09/04/19 07:44 Pulse 91 09/04/19 07:44 Resp 20 09/04/19 07:44 BP 143/97 H 09/04/19 07:44 Pulse Ox 98 09/04/19 07:44 Vital Signs - 24 hr 09/03/19 09/03/19 09/03/19 16:44 17:50 20:00 Temperature [ 36.9 C Temporal] Pulse, 110 H Peripheral [ Pulse Oximetry] Respiratory 16 Rate Blood Pressure 196/104 H Blood Pressure 131/87 [Left Upper Arm ] Blood Pressure 155/106 H [Right Upper Arm] O2 Sat by Pulse 94 L Oximetry 09/03/19 09/04/19 09/04/19 20:23 07:41 07:44 Temperature [ 36.6 C Temporal] Pulse, 91 Peripheral [ Pulse Oximetry] Respiratory 20 Rate Blood Pressure 142/97 H 143/97 H Blood Pressure 143/97 H [Left Upper Arm ] Blood Pressure [Right Upper Arm] O2 Sat by Pulse 98 Oximetry Weight - Most Recent: 126.235 kg I&O - Last 24 hours: Intake & Output 01/11/1809/04/19 09/04/19 22:59 06:59 14:59 Intake Total 700 300 Output Total 325 400 Balance 375 -100 Imaging Impressions - Last 24 hrs: Chest x-ray, PA and lateral, report from 09/02/2019 showed no evidence of infection, etc. Lab Results - Last 24 hrs: Laboratory Results - last 24 hr 09/04/19 09/04/19 Range/Units 06:57 06:57 WBC 7.2 (4.0-10.2) K/uL RBC 5.17 (4.33-5.41) M/uL Hgb 16.3 (13.1-16.8) g/dL Hct 47.5 (39.0-49.0) % MCV 91.9 (84.0-98.0) fL MCH 31.5 (28.2-33.3) pg MCHC 34.3 (31.7-36.0) g/dL RDW 13.0 (11.2-14.1) % Plt Count 155 (150-350) K/uL Neut % (Auto) 40.8 L (45.0-80.0) % Lymph % (Auto) 45.2 (10.0-50.0) % [place] % (Auto) 6.2 (2.0-14.0) % Eos % (Auto) 7.2 H (0.0-5.0) % Baso % (Auto) 0.6 (0.0-2.0) % Neut # (Auto) 2.95 (1.40-7.00) K/uL Lymph # (Auto) 3.27 (0.50-3.50) K/uL [place] # (Auto) 0.45 (0.00-1.00) K/uL Eos # (Auto) 0.52 H (0.00-0.50) K/uL Baso # (Auto) 0.04 (0.00-0.20) K/uL Sodium 141 (136-145) mmol/L Potassium 3.5 (3.5-5.1) mmol/L Chloride 104 (98-107) mmol/L Carbon Dioxide 29.0 (21.0-32.0) mmol/L BUN 9 (7-18) mg/dL Creatinine 0.69 (0.51-1.17) mg/dL Est Cr Clr Drug Dosing 130.80 mL/min Estimated GFR (MDRD) > 60 mL/min Glucose 116 H (74-106) mg/dL Calcium 8.7 (8.5-10.1) mg/dL Total Bilirubin 1.3 H (0.2-1.0) mg/dL Direct Bilirubin 0.4 H (0.0-0.2) mg/dL Indirect Bilirubin 0.9 AST 202 H (15-37) U/L ALT 160 H (12-78) U/L Alkaline Phosphatase 86 (46-116) IU/L C-Reactive Protein 1.0 H (<=0.9) mg/dL Total Protein 7.8 (6.4-8.2) g/dL Albumin 3.5 (3.4-5.0) g/dL Globulin 4.3 Albumin/Globulin Ratio 0.81 Laboratory Tests 09/02/19 09/02/19 09/02/19 Range/Units 15:45 15:45 15:45 WBC Cancelled 7.3 RBC Cancelled 5.61 H Hgb Cancelled 17.9 H Hct Cancelled 51.1 H MCV Cancelled 91.1 MCH Cancelled 31.9 MCHC Cancelled 35.0 RDW Cancelled 13.3 Plt Count Cancelled 177 Neut % (Auto) Cancelled 38.4 L Lymph % (Auto) Cancelled 46.3 Me[place] % (Auto) Cancelled 11.0 Eos % (Auto) Cancelled 3.3 Baso % (Auto) Cancelled 1.0 Neut # (Auto) Cancelled 2.80 Lymph # (Auto) Cancelled 3.37 Meade # (Auto) Cancelled 0.80 Eos # (Auto) Cancelled 0.24 Baso # (Auto) Cancelled 0.07 Add Manual Diff Cancelled Sodium Cancelled Potassium Cancelled Chloride Cancelled Carbon Dioxide Cancelled BUN Cancelled Creatinine Cancelled Est Cr Clr Drug Dosing Cancelled Estimated GFR (MDRD) Cancelled Glucose Cancelled Hemoglobin A1c (4.3-5.7) % Calcium Cancelled Total Bilirubin Cancelled Direct Bilirubin (0.0-0.2) mg/dL Indirect Bilirubin AST Cancelled ALT Cancelled Alkaline Phosphatase Cancelled Troponin I Cancelled C-Reactive Protein (<=0.9) mg/dL NT-Pro-B Natriuret Pep (0-125) pg/mL Total Protein Cancelled Albumin Cancelled Globulin Albumin/Globulin Ratio Triglycerides (30-150) mg/dL Cholesterol (100-200) mg/dL LDL Cholesterol, Calc (0-100) mg/dL HDL Cholesterol (40-60) mg/dL Amylase (25-115) U/L Lipase (73-393) U/L Specimen Type Urine Color Urine Appearance Urine pH (5.0-9.0) Ur Specific [place] (1.005-1.030) Urine Protein (NEGATIVE) mg/dL Urine Glucose (UA) (NEGATIVE) mg/dL Urine Ketones (NEGATIVE) mg/dL Urine Occult Blood (NEGATIVE) Urine Nitrite (NEGATIVE) Urine Bilirubin (NEGATIVE) Urine Urobilinogen (0.2-1.0) E.U./dL Ur Leukocyte Esterase (NEGATIVE) Urine RBC /HPF Urine WBC /HPF Ur Epithelial Cells /LPF Urine Bacteria (NONE TO FEW) /HPF Urine Mucus (NEGATIVE) /LPF 09/02/19 09/02/19 09/03/19 Range/Units 15:45 17:05 07:20 WBC RBC Hgb Hct MCV MCH MCHC RDW Plt Count Neut % (Auto) Lymph % (Auto) [place] % (Auto) Eos % (Auto) Baso % (Auto) Neut # (Auto) Lymph # (Auto) [place] # (Auto) Eos # (Auto) Baso # (Auto) Add Manual Diff Sodium 141 141 Potassium 3.9 3.7 Chloride 104 106 Carbon Dioxide 25.3 28.8 BUN 12 12 Creatinine 0.74 0.74 Est Cr Clr Drug Dosing TNP 121.96 Estimated GFR (MDRD) > 60 > 60 Glucose 140 H 110 H Hemoglobin A1c (4.3-5.7) % Calcium 9.7 8.2 L D Total Bilirubin 1.5 H 1.5 H Direct Bilirubin (0.0-0.2) mg/dL Indirect Bilirubin AST 79 H 136 H ALT 83 H 104 H Alkaline Phosphatase 90 79 Troponin I 0.000 C-Reactive Protein (<=0.9) mg/dL NT-Pro-B Natriuret Pep (0-125) pg/mL Total Protein 8.9 H 7.4 Albumin 4.2 3.3 L Globulin Albumin/Globulin Ratio Triglycerides 243 H (30-150) mg/dL Cholesterol 216 H (100-200) mg/dL LDL Cholesterol, Calc 116 H (0-100) mg/dL HDL Cholesterol 51 (40-60) mg/dL Amylase 46 (25-115) U/L Lipase 273 (73-393) U/L Specimen Type . Urine Color Coral Urine Appearance Slightly cloudy Urine pH 6.0 (5.0-9.0) Ur Specific [place] 1.020 (1.005-1.030) Urine Protein 100 H (NEGATIVE) mg/dL Urine Glucose (UA) Negative (NEGATIVE) mg/dL Urine Ketones 15 H (NEGATIVE) mg/dL Urine Occult Blood Negative (NEGATIVE) Urine Nitrite Positive H (NEGATIVE) Urine Bilirubin Small H (NEGATIVE) Urine Urobilinogen 1.0 (0.2-1.0) E.U./dL Ur Leukocyte Esterase Negative (NEGATIVE) Urine RBC 0-5 /HPF Urine WBC 0-5 /HPF Ur Epithelial Cells Few /LPF Urine Bacteria Few (NONE TO FEW) /HPF Urine Mucus Many H (NEGATIVE) /LPF 09/03/19 09/03/19 09/03/19 Range/Units 07:20 07:20 07:20 WBC 6.2 RBC 4.99 Hgb 15.9 D Hct 46.3 MCV 92.8 MCH 31.9 MCHC 34.3 RDW 13.4 Plt Count 150 Neut % (Auto) 34.3 L Lymph % (Auto) 49.8 Meade % (Auto) 7.9 Eos % (Auto) 7.4 H Baso % (Auto) 0.6 Neut # (Auto) 2.14 Lymph # (Auto) 3.10 [place] # (Auto) 0.49 Eos # (Auto) 0.46 Baso # (Auto) 0.04 Add Manual Diff Sodium Potassium Chloride Carbon Dioxide BUN Creatinine Est Cr Clr Drug Dosing Estimated GFR (MDRD) Glucose Hemoglobin A1c 6.2 H (4.3-5.7) % Calcium Total Bilirubin Direct Bilirubin (0.0-0.2) mg/dL Indirect Bilirubin AST ALT Alkaline Phosphatase Troponin I C-Reactive Protein (<=0.9) mg/dL NT-Pro-B Natriuret Pep 28 (0-125) pg/mL Total Protein Albumin Globulin Albumin/Globulin Ratio Triglycerides (30-150) mg/dL Cholesterol (100-200) mg/dL LDL Cholesterol, Calc (0-100) mg/dL HDL Cholesterol (40-60) mg/dL Amylase (25-115) U/L Lipase (73-393) U/L Specimen Type Urine Color Urine Appearance Urine pH (5.0-9.0) Ur Specific [place] (1.005-1.030) Urine Protein (NEGATIVE) mg/dL Urine Glucose (UA) (NEGATIVE) mg/dL Urine Ketones (NEGATIVE) mg/dL Urine Occult Blood (NEGATIVE) Urine Nitrite (NEGATIVE) Urine Bilirubin (NEGATIVE) Urine Urobilinogen (0.2-1.0) E.U./dL Ur Leukocyte Esterase (NEGATIVE) Urine RBC /HPF Urine WBC /HPF Ur Epithelial Cells /LPF Urine Bacteria (NONE TO FEW) /HPF Urine Mucus (NEGATIVE) /LPF 09/04/19 09/04/19 Range/Units 06:57 06:57 WBC 7.2 RBC 5.17 Hgb 16.3 Hct 47.5 MCV 91.9 MCH 31.5 MCHC 34.3 RDW 13.0 Plt Count 155 Neut % (Auto) 40.8 L Lymph % (Auto) 45.2 [place] % (Auto) 6.2 Eos % (Auto) 7.2 H Baso % (Auto) 0.6 Neut # (Auto) 2.95 Lymph # (Auto) 3.27 [place] # (Auto) 0.45 Eos # (Auto) 0.52 H Baso # (Auto) 0.04 Add Manual Diff Sodium 141 Potassium 3.5 Chloride 104 Carbon Dioxide 29.0 BUN 9 Creatinine 0.69 Est Cr Clr Drug Dosing 130.80 Estimated GFR (MDRD) > 60 Glucose 116 H Hemoglobin A1c (4.3-5.7) % Calcium 8.7 Total Bilirubin 1.3 H Direct Bilirubin 0.4 H (0.0-0.2) mg/dL Indirect Bilirubin 0.9 AST 202 H ALT 160 H Alkaline Phosphatase 86 Troponin I C-Reactive Protein 1.0 H (<=0.9) mg/dL NT-Pro-B Natriuret Pep (0-125) pg/mL Total Protein 7.8 Albumin 3.5 Globulin 4.3 Albumin/Globulin Ratio 0.81 Triglycerides (30-150) mg/dL Cholesterol (100-200) mg/dL LDL Cholesterol, Calc (0-100) mg/dL HDL Cholesterol (40-60) mg/dL Amylase (25-115) U/L Lipase (73-393) U/L Specimen Type Urine Color Urine Appearance Urine pH (5.0-9.0) Ur Specific [place] (1.005-1.030) Urine Protein (NEGATIVE) mg/dL Urine Glucose (UA) (NEGATIVE) mg/dL Urine Ketones (NEGATIVE) mg/dL Urine Occult Blood (NEGATIVE) Urine Nitrite (NEGATIVE) Urine Bilirubin (NEGATIVE) Urine Urobilinogen (0.2-1.0) E.U./dL Ur Leukocyte Esterase (NEGATIVE) Urine RBC /HPF Urine WBC /HPF Ur Epithelial Cells /LPF Urine Bacteria (NONE TO FEW) /HPF Urine Mucus (NEGATIVE) /LPF Hepatitis panel pending MABEL Results - Last 24 hrs: Microbiology 09/03/19 11:10 Urine Culture - Preliminary Urine, Voided NO GROWTH AFTER 1 DAY Blood culture results 2 pending Med Orders - Current: Current Medications Albuterol (Ventolin Hfa) 8.5 gm INH ASDIRECTED PRN PRN Reason: Dyspnea Albuterol/Ipratropium (Duoneb 3.0-0.5 Mg/3 Ml) 3 ml INH QID PRN PRN Reason: Shortness of Breath Amitriptyline HCl (Elavil) 50 mg PO DAILY@1700 [facility] Last Admin: 09/03/19 17:16 Dose: 50 mg Arformoterol Tartrate (Brovana) 15 mcg NEB BIDRT [facility] Last Admin: 09/04/19 07:41 Dose: 15 mcg Benzonatate (Tessalon Perles) 200 mg PO TID PRN PRN Reason: Cough Last Admin: 09/03/19 08:42 Dose: 200 mg Budesonide (Pulmicort) 0.5 mg NEB BIDRT [facility] Last Admin: 09/04/19 07:41 Dose: 0.5 mg Gabapentin (Neurontin) 800 mg PO BID@799,1999 [facility] Last Admin: 09/04/19 07:40 Dose: 800 mg Ceftriaxone Sodium 1 gm/ (Sodium Chloride) 100 mls @ 200 mls/hr IV Q24H [facility] Last Admin: 09/03/19 11:28 Dose: 200 mls/hr Levothyroxine Sodium (Levothyroxine) 25 mcg PO DAILY [facility] Last Admin: 09/04/19 07:40 Dose: 25 mcg Lisinopril (Prinivil) 20 mg PO BID@799,1999 [facility] Last Admin: 09/04/19 07:41 Dose: 20 mg Lorazepam (Ativan) 1 mg PO TID PRN PRN Reason: Anxiety Last Admin: 09/03/19 07:47 Dose: 1 mg Montelukast Sodium (Singulair) 10 mg PO DAILY [facility] Last Admin: 09/04/19 07:40 Dose: 10 mg Naproxen (Naprosyn) 500 mg PO BID PRN PRN Reason: Pain Ondansetron HCl (Zofran) 4 mg IVPUSH Q6H PRN PRN Reason: Nausea/Vomiting Pantoprazole Sodium (Protonix) 40 mg PO BEDTIME [facility] Last Admin: 09/03/19 20:24 Dose: 40 mg Sodium Chloride (Saline Flush) 10 ml FLUSH ASDIRECTED PRN PRN Reason: Keep Vein Open Last Admin: 09/03/19 11:28 Dose: 10 ml Discontinued Medications Acetaminophen (Tylenol Extra Strength) 500 mg PO ONETIME ONE Stop: 09/02/19 17:30 Last Admin: 09/02/19 18:01 Dose: 500 mg Amitriptyline HCl (Elavil) 50 mg PO BEDTIME [facility] Diphenhydramine HCl (Benadryl) 25 mg PO ONETIME ONE Stop: 09/02/19 17:31 Last Admin: 09/02/19 18:00 Dose: 25 mg Diphenhydramine HCl (Benadryl) Confirm Administered Dose 25 mg .ROUTE .STK-MED ONE Stop: 09/02/19 17:54 Last Admin: 09/02/19 18:01 Dose: Not Given Furosemide (Lasix) 10 mg IVPUSH NOW ONE Stop: 09/03/19 08:09 Last Admin: 09/03/19 08:41 Dose: 10 mg Sodium Chloride (Normal Saline) 1,000 mls @ 150 mls/hr IV ASDIRECTED [facility] Last Admin: 09/03/19 05:27 Dose: 150 mls/hr Influenza Virus Vaccine (Pharmacy To Dose - Influenza Vaccine) 1 each IM ONETIME ONE Stop: 09/02/19 20:30 Influenza Virus Vaccine (Fluzone Quad Syringe) 60 mcg IM .ONCE ONE Stop: 09/02/19 20:46 Last Admin: 09/03/19 17:45 Dose: Not Given Influenza Virus Vaccine (Fluzone Quad Syringe) 60 mcg IM .ONCE ONE Stop: 09/03/19 18:01 Last Admin: 09/03/19 17:42 Dose: 60 mcg Nifedipine (Procardia) 10 mg PO ONETIME ONE Stop: 09/03/19 17:36 Last Admin: 09/03/19 17:50 Dose: 10 mg Budesonide/ (Formoterol 2 Puff)) 2 puff INH BID@0800,2000 [facility] Pantoprazole Sodium (Protonix Iv) 40 mg IVPUSH ONETIME ONE Stop: 09/02/19 16:25 Last Admin: 09/02/19 16:51 Dose: 40 mg - Exam Quality Assessment: Reports: DVT Prophylaxis. Denies: Supplemental Oxygen, Central Line/PICC, Urine Catheter, Skin Breakdown, Restraints General: Reports: Alert, Oriented, Cooperative, No Acute Distress HEENT: Reports: Pupils Equal, Pupils Reactive, EOMI, Mucous Membr. Moist/[place], Other (Patient wearing glasses). Denies: Scleral Icterus Neck: Reports: Supple, Trachea Midline, No JVD, No Thyromegaly, +2 Carotid Pulse wo Bruit. Denies: Lymphadenopathy Lungs: Reports: Clear to Auscultation, Normal Respiratory Effort. Denies: Rub Cardiovascular: Reports: Regular Rate, Regular Rhythm, No Murmurs. Denies: Gallops, Rubs GI/Abdominal Exam: Normal Bowel Sounds, Soft, Non-Tender, No Organomegaly, No Distention, No Abnormal Bruit, No Mass, Pelvis Stable, Other (Obese). No: Guarding (Male) Exam: Deferred Rectal (Males) Exam: Deferred Back Exam: Reports: Normal Inspection, Full Range of Motion. Denies: CVA Tenderness (L), CVA Tenderness (R), Muscle Spasm Extremities: Normal Inspection, Normal Range of Motion, Non-Tender, No Pedal Edema, Normal Capillary Refill. No: Alfonzo's Sign Skin: Reports: Warm, Dry, Intact, Other (No jaundice. Multiple tattoos). Denies : Ecchymosis Neurological: Reports: No New Focal Deficit Psy/Mental Status: Reports: Alert, Normal Affect, Normal Mood. Denies: Agitated , Hallucinations, Withdrawal Symptoms
[2019-09-04] MEDS: cefTRIAXone 1 GM in Sodium Chloride 0.9% 100 ML IV SCH (10:45)
[2019-09-04] MEDS: Sodium Chloride 0.9% 10 ML Syringe FLUSH PRN (10:45)
== END 2019-09-04 11:35 | disposition home or self-care (01) ==
LOC: LL.MS 15:00 → UNDOADMOB 16:11 → LL.MS 16:11
PROVIDERS: ADMIT Nurse Practitioner Family; ATTEND Family Medicine
DX: R79.89 Other specified abnormal findings of blood chemistry (principal); N30.00 Acute cystitis without hematuria; J41.8 Mixed simple and mucopurulent chronic bronchitis; E86.0 Dehydration; I10 Essential (primary) hypertension; K21.9 Gastro-esophageal reflux disease without esophagitis; E66.9 Obesity, unspecified; E03.9 Hypothyroidism, unspecified; F17.210 Nicotine dependence, cigarettes, uncomplicated; E88.09 Other disorders of plasma-protein metabolism, not elsewhere classified; R73.9 Hyperglycemia, unspecified; M19.90 Unspecified osteoarthritis, unspecified site; Z71.6 Tobacco abuse counseling; Z79.899 Other long term (current) drug therapy
CPT/HCPCS: 36415; 71046; 80048; 80053; 80061; 80074; 80076; 81001; 82150; 83036; 83690; 83880; 84484; 85025; 86140; 87040; 87086; 90686; 93005; 94640; 96361; 96365; 96366; 96375; A9270-GY; C9113; G0008; G0378; J0696; J1940; J7030; J7050